=== PATIENT | female | born 1960 | race Caucasian/White ===

== ENCOUNTER 2017-12-08 19:25 | Inpatient (IN) | payer BC ==
[~2017-12-08] VITALS: Ht 162.6 cm; Wt 78.0 kg
[2017-12-08] MEDS: ALBUTEROL SULF 0.083% NEB SOLN 3 ML NEB NEB SCH (00:15)
[2017-12-08] MEDS: IPRATROPIUM BROMIDE 0.02% 2.5 ML NEB NEB SCH (00:15)
[2017-12-08] MEDS ORDERED: ONDANSETRON HCL INJ 2 MG/ML VIAL IV STA (19:43)
[2017-12-08] MEDS ORDERED: PANTOPRAZOLE 40 MG 10ML VIAL IV STA (19:43)
[2017-12-08] MEDS ORDERED: ALBUTEROL SULF 0.083% NEB SOLN 3 ML NEB NEB STA ×2 (19:43→21:08)
[2017-12-08] MEDS ORDERED: SODIUM CHLORIDE 0.9% 1000ML 1,000 ML IV STA (19:43)
[2017-12-08] MEDS ORDERED: MORPHINE SULFATE 2 MG/ML SYR IV STA (19:43)
[2017-12-08] MEDS ORDERED: IPRATROPIUM BROMIDE 0.02% 2.5 ML NEB NEB ONE (19:45)
[2017-12-08] MEDS ORDERED: LEVOTHYROXINE50 MCG PO (20:01)
[2017-12-08] MEDS ORDERED: LOSARTAN POTASS25 MG PO (20:01)
[2017-12-08] MEDS ORDERED: CARVEDILOL12.5 MG PO (20:01)
[2017-12-08] MEDS ORDERED: VSL#3 CAPSULE1 EACH PO (20:01)
[2017-12-08] MEDS ORDERED: MIRTAZAPINE15 MG PO (20:01)
[2017-12-08] MEDS ORDERED: VITAMIN D31000 UNI1 PO (20:01)
[2017-12-08] MEDS ORDERED: CLONAZEPAM0.5 MG PO (20:01)
[2017-12-08] MEDS ORDERED: FOLIC ACID1 MG PO (20:01)
[2017-12-08] MEDS ORDERED: FOLIC ACID-VIT1 EAC1 (20:01)
[2017-12-08] MEDS ORDERED: SENNOSIDES8.6 MG PO (20:01)
[2017-12-08] MEDS ORDERED: MIRALAX17 GM PO (20:01)
[2017-12-08] MEDS ORDERED: PRAVASTATIN SOD40 MG PO (20:01)
[2017-12-08] MEDS ORDERED: LACTULOSE PO (20:01)
[2017-12-08] MEDS ORDERED: OMEPRAZOLE40 MG PO (20:01)
[2017-12-08 20:07] LABS: BASOPHILS % 0.2 % (0.0-1.0); EOSINOPHILS # (AUTO) 0.1 (0.0-0.4); EOSINOPHILS % 0.4 % (0.0-6.0); HEMATOCRIT 45.2 % (34.2-44.1); HEMOGLOBIN 14.9 g/dL (12.0-16.0); LYMPHOCYTES # (AUTO) 2.7 (1.0-3.2); LYMPHOCYTES % 22.4 % (18.0-39.1); MEAN CORPUSCULAR HEMOGLOBIN 29.9 pg (28-32); MEAN CORPUSCULAR VOLUME 90.8 fL (81-99); MONOCYTES # (AUTO) 1.1 (0.2-0.8); NEUTROPHILS # (AUTO) 8.2 (2.1-6.9); NEUTROPHILS % 67.6 % (38.7-80.0); PLATELET COUNT 315 x10e3/uL (140-360); RED BLOOD COUNT 4.98 x10e6/uL (3.6-5.1)
[2017-12-08 20:15] LABS: INR 1.77; PROTHROMBIN TIME 19.4 seconds (11.9-14.5)
[2017-12-08 20:16] LABS: PARTIAL THROMBOPLASTIN TIME 36.1 seconds (23.8-35.5)
[2017-12-08 20:25] LABS: ALANINE AMINOTRANSFERASE 14 IU/L (0-55); ALBUMIN/GLOBULIN RATIO 1.1 (0.8-2.0); ALKALINE PHOSPHATASE 61 IU/L (40-150); ANION GAP 16.8 mmol/L (8-16); BLOOD UREA NITROGEN 17 mg/dL (7-26); BUN/CREATININE RATIO 25 (6-25); CALCIUM 9.9 mg/dL (8.4-10.2); CARBON DIOXIDE 24 mmol/L (22-29); CHLORIDE 101 mmol/L (98-107); CREATINE KINASE 74 IU/L (29-168); CREATININE, SERUM 0.69 mg/dL (0.57-1.11); EST GLOMERULAR FILTRATION RATE > 60 ML/MIN (60-); GLUCOSE 99 mg/dL (74-118); MAGNESIUM 1.7 MG/DL (1.3-2.1); POTASSIUM 3.8 mmol/L (3.5-5.1); SODIUM 138 mmol/L (136-145)
[2017-12-08] MEDS ORDERED: PREDNISONE20 MG PO (20:46)
[2017-12-08] MEDS ORDERED: ALBUTEROL2.5 MG/3 M NEB (20:46)
[2017-12-08] MEDS ORDERED: PROAIR HFA INH8.5 GM INH (20:46)
[2017-12-08] MEDS ORDERED: JANTOVEN10 MG PO (20:46)
[2017-12-08] MEDS ORDERED: NAPROXEN500 MG PO (20:46)
[2017-12-08] MEDS ORDERED: ULTRAM 50MG50 MG PO (20:46)
[2017-12-08] MEDS ORDERED: MONTELUKAST SOD10 MG PO (20:46)
[2017-12-08] MEDS ORDERED: METHYLPREDNISOLONE SOD SUCC 125 MG/2ML VIAL IV STA (21:08)
[2017-12-08] MEDS ORDERED: LEVOFLOXACIN 500MG/D5W 100ML 100 ML IV SCH (21:15)
--- NOTE | 2017-12-08 21:17 | Diagnostic Imaging Report ---
EXAMINATION: CHEST SINGLE (PORTABLE) INDICATION: Chest pain, cough, shortness of breath COMPARISON: 01/14/2012 FINDINGS: TUBES and LINES: None. LUNGS: Lungs are well inflated. There are bibasilar atelectasis. Confluent left lower lobe opacity compatible with pneumonia. PLEURA: Trace of left pleural effusion HEART AND MEDIASTINUM: The cardiomediastinal silhouette is unremarkable. BONES AND SOFT TISSUES: No acute osseous lesion. Soft tissues are unremarkable. UPPER ABDOMEN: No free air under the diaphragm. IMPRESSION: Left lower lobe pneumonia with trace of pleural effusion is present Signed by: Dr. Augie Bird M.D. on 12/08/2017 9:14 PM
[2017-12-08 21:27] LABS: BILIRUBIN,URINE 1+ (NEGATIVE); COLOR,URINE YELLOW (YELLOW); KETONES,URINE 2+ (NEGATIVE); LEUKOCYTE ESTERASE ,URINE NEGATIVE (NEGATIVE); NITRITE,URINE NEGATIVE (NEGATIVE); PROTEIN,URINE DIPSTICK TRACE (NEGATIVE); URINE UROBILINOGEN 0.2 mg/dL (0.2 - 1)
[2017-12-08] MEDS ORDERED: ASPIRIN 81 MG CHEW TAB PO ONE (21:30)
[2017-12-08 21:33] LABS: BACTERIA,URINE RARE /HPF; CLARITY,URINE HAZY (CLEAR); EPITHELIAL CELLS,URINE MODERATE /LPF; RBC,URINE 0-5 /HPF (0-5); WBC,URINE (MAN) 0-5 /HPF (0-5)
[2017-12-08] MEDS ORDERED: ALBUTEROL SULF 0.083% NEB SOLN 3 ML NEB ONE (21:46)
[2017-12-08] MEDS ORDERED: FAMOTIDINE 20 MG/2 ML VIAL IV SCH (22:15)
[2017-12-08] MEDS: AZITHROMYCIN 500MG/NS 250 ML 250 ML IV SCH (22:16)
[2017-12-08] MEDS: CEFTRIAXONE SOD 1 GM VIAL IV SCH (22:16)
[2017-12-08] MEDS: MORPHINE SULFATE 2 MG/ML SYR IV PRN (23:46)
[2017-12-09] VITALS (55 sets, daily range): BP systolic 76–172; BP diastolic 54–110
[2017-12-09] MEDS ORDERED: WARFARIN SOD 5 MG TAB PO ONE (01:15)
[2017-12-09] MEDS ORDERED: CYCLOBENZAPRINE10 MG PO (01:58)
[2017-12-09] MEDS ORDERED: MONTELUKAST SOD10 MG PO (01:58)
[2017-12-09] MEDS ORDERED: FLUOXETINE HCL20 MG PO (01:58)
[2017-12-09] MEDS ORDERED: ULTRAM50 MG PO (01:58)
[2017-12-09] MEDS ORDERED: TRELEGY INH (02:19)
[2017-12-09] MEDS: ALBUTEROL SULF 0.083% NEB SOLN 3 ML NEB NEB SCH ×6 (03:10→22:30)
[2017-12-09] MEDS: IPRATROPIUM BROMIDE 0.02% 2.5 ML NEB NEB SCH ×6 (03:10→22:30)
[2017-12-09 03:51] LABS: BASOPHILS % 0.1 % (0.0-1.0); HEMATOCRIT 41.3 % (34.2-44.1); HEMOGLOBIN 13.4 g/dL (12.0-16.0); LYMPHOCYTES # (AUTO) 0.4 (1.0-3.2); LYMPHOCYTES % 4.2 % (18.0-39.1); MEAN CORPUSCULAR HEMOGLOBIN 29.7 pg (28-32); MEAN CORPUSCULAR HGB CONC 32.4 g/dL (31-35); MEAN CORPUSCULAR VOLUME 91.6 fL (81-99); MONOCYTES # (AUTO) 0.1 (0.2-0.8); NEUTROPHILS # (AUTO) 7.8 (2.1-6.9); NEUTROPHILS % 94.5 % (38.7-80.0); RED BLOOD COUNT 4.51 x10e6/uL (3.6-5.1); RED CELL DISTRIBUTION WIDTH 15.2 % (11.7-14.4)
[2017-12-09 03:52] LABS: PLATELET COUNT 219 x10e3/uL (140-360)
[2017-12-09 04:00] LABS: ALANINE AMINOTRANSFERASE 15 IU/L (0-55); ALBUMIN 3.6 g/dL (3.5-5.0); ALBUMIN/GLOBULIN RATIO 1.1 (0.8-2.0); ALKALINE PHOSPHATASE 56 IU/L (40-150); ANION GAP 16.2 mmol/L (8-16); BLOOD UREA NITROGEN 16 mg/dL (7-26); BUN/CREATININE RATIO 25 (6-25); CALCIUM 9.3 mg/dL (8.4-10.2); CARBON DIOXIDE 24 mmol/L (22-29); CHLORIDE 103 mmol/L (98-107); CHOL/HDL RATIO 3.1 (3.0-3.6); CHOLESTEROL 227 MD/DL (0-199); CREATININE, SERUM 0.63 mg/dL (0.57-1.11); EST GLOMERULAR FILTRATION RATE > 60 ML/MIN (60-); GLUCOSE 132 mg/dL (74-118); HDL CHOLESTEROL 74 MG/DL (40-60); LDL CHOLESTEROL 129 MG/DL (60-130); POTASSIUM 4.2 mmol/L (3.5-5.1); SODIUM 139 mmol/L (136-145); TRIGLYCERIDES 122 MG/DL (0-149)
[2017-12-09 04:28] LABS: CREATINE KINASE MB 2.2 ng/mL (0-5.0)
[2017-12-09] MEDS: MORPHINE SULFATE 2 MG/ML SYR IV PRN (05:52)
[2017-12-09] MEDS: METHYLPREDNISOLONE SOD SUCC 125 MG/2ML VIAL IV SCH ×3 (05:52→22:00)
[2017-12-09] MEDS: ONDANSETRON HCL INJ 2 MG/ML VIAL IV PRN (05:52)
[2017-12-09] MEDS: CEFTRIAXONE SOD 1 GM VIAL IV SCH ×2 (08:29→21:30)
[2017-12-09] MEDS: AZITHROMYCIN 500MG/NS 250 ML 250 ML IV SCH (08:29)
[2017-12-09] MEDS ORDERED: FAMOTIDINE 20 MG/2 ML VIAL IV SCH (09:00)
[2017-12-09] MEDS ORDERED: TRAMADOL HCL 50 MG TAB PO PRN (09:15)
[2017-12-09] MEDS ORDERED: CLONAZEPAM 0.5 MG TAB PO PRN (09:15)
[2017-12-09] MEDS ORDERED: MORPHINE SULFATE INJ 4 MG/ML INJ IV PRN (09:45)
[2017-12-09 12:10] LABS: CREATINE KINASE MB 3.1 ng/mL (0-5.0)
[2017-12-09 12:25] LABS: ABG HCO3 34 mmol/L (23-28); ABG PCO2 67 mmHg (41-51); ABG PH 7.31 (7.31-7.41); ABG PO2 97 mmHg (80-105)
[2017-12-09] MEDS: NICOTINE 14 MG/EA PATCH TOP SCH (12:31)
--- NOTE | 2017-12-09 12:49 | Consultation ---
DATE OF CONSULTATION: December 14, 2017 PULMONARY CONSULTATION A patient of Dr. Bruner, Dr. Mukherjee, Dr. Da Silva. 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 No history of fever or chills. Uses home oxygen p.r.n. Able to work. History of mold allergies. In addition to oxygen her home medications have included ___Trelegy, Coumadin. ___Her medications have included albuterol, Coreg, clonazepam, Flexeril, Pepcid, Prozac, Protonix, MiraLAX, Pravachol, tramadol, warfarin. She is an anxious white female who is using some accessory muscles. Her family history is positive for hypertension, liver disease. Smokes half a pack a day, smoked as many as 2 packs a day. 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 PHYSICAL EXAMINATION GENERAL: This is a well-developed white female, anxious, using accessory muscles. VITAL SIGNS: Temperature 97.3, pulse 102, respiration 20, blood pressure 140/80. HEAD: Normocephalic, atraumatic. EYES: Extraocular movements intact. LUNGS: Wheezing all lung li. HEART: Regular rhythm. ABDOMEN: Nontender. EXTREMITIES: Nonedematous. Plan is to adjust medications, possible BiPAP if she does not soon improve, corticosteroids. Consider more selective beta agonist such as Lopressor. Thank you for this kind referral. SANTI MONSALVE MD Job#: [id number] EV cc:MD HARPER RODRIGUEZ MD JOSEPH G. VALDEZ, MD
[2017-12-09] MEDS: CYCLOBENZAPRINE HCL 10 MG TAB PO SCH ×2 (13:45→22:00)
[2017-12-09] MEDS: POLYETHYLENE GLYCOL 3350 17 GM PACK PO SCH ×3 (14:55→21:00)
[2017-12-09] MEDS: PROPOFOL IV EMULSION 10MG/ML 100 ML IV SCH ×2 (15:45→22:00)
--- NOTE | 2017-12-09 15:56 | Diagnostic Imaging Report ---
Examination: Single AP view of the chest. COMPARISON: 12/08/2017 INDICATION: Post intubation DISCUSSION: Lines/tubes: Endotracheal tube approximately 3.5 cm from the bill. Lungs: The lungs are well inflated and clear. No pneumonia or pulmonary edema. Pleura: No pleural effusion or pneumothorax. Heart and mediastinum: The heart and the mediastinum are unremarkable. Bones and soft tissues: No acute bony abnormalities. IMPRESSION: Intubation with endotracheal tube in satisfactory position. Signed by: Dr. Jayden Riojas M.D. on 12/09/2017 3:52 PM
[2017-12-09] MEDS ORDERED: SUCCINYLCHOLINE 200 MG/10 ML SYR IV ONE (16:03)
[2017-12-09] MEDS ORDERED: ETOMIDATE 40 MG/ 20ML VIAL IV ONE (16:04)
[2017-12-09] MEDS: FENTANYL CITRATE INJ 2,000 MCG in SODIUM CHLORIDE 0.9% 250ML 210 ML IV SCH (16:30)
[2017-12-09] MEDS: PANTOPRAZOLE SOD 40 MG TABEC PO SCH (16:31)
[2017-12-09] MEDS: BIF CMB1 PO SCH (16:31)
[2017-12-09] MEDS: S THERMOPHL PO SCH (16:31)
[2017-12-09] MEDS: LACT CMB2 PO SCH (16:31)
[2017-12-09] MEDS: LOSARTAN POTASSIUM 25 MG TAB PO SCH (16:31)
[2017-12-09] MEDS: CARVEDILOL 12.5 MG TAB PO SCH (16:31)
[2017-12-09 17:00] LABS: ABG PH 7.26 (7.31-7.41)
[2017-12-09] MEDS ORDERED: S THERMOPHL PO SCH (17:00)
[2017-12-09] MEDS ORDERED: BIF CMB1 PO SCH (17:00)
[2017-12-09] MEDS ORDERED: LACT CMB2 PO SCH (17:00)
[2017-12-09 17:01] LABS: ABG PCO2 75 mmHg (41-51)
[2017-12-09 17:02] LABS: ABG HCO3 33 mmol/L (23-28); ABG PO2 118 mmHg (80-105)
--- NOTE | 2017-12-09 18:03 | History and Physical ---
HISTORY OF PRESENT ILLNESS: A 57-year-old female with past medical history positive for COPD came here with difficulty breathing. She was found to have COPD exacerbation, later on progressed to respiratory failure, had to be intubated due to the respiratory acidosis. Patient is sedated right now on ventilator machine. REVIEW OF SYSTEMS: Of course the patient is intubated, cannot give me any information. PAST MEDICAL HISTORY: Mainly positive for COPD. SOCIAL HISTORY: She has apparently history of smoking. No drinking. ALLERGIES: SHE IS ALLERGIC TO LEVAQUIN, PROMETHAZINE. PHYSICAL EXAMINATION: VITAL SIGNS: Blood pressure 137/83, temperature 97.0, heart rate 111 per minute, respiratory rate 23 per minute. Oxygen saturation 93%. HEART: Shows regular rhythm. Normal S1 and S2 sounds. LUNGS: Show decreased breath sounds bilaterally. ABDOMEN: Soft. EXTREMITIES: Show no evidence of cyanosis, edema or trauma. On the blood work we have a BMP: Sodium 139, potassium 4.2, chloride 103, CO2 24, BUN 16, creatinine 0.63, glucose 132. On the CBC: White blood count 8.29, hemoglobin 13.4, hematocrit 41.3, platelet count 210,000. PT 19.4, INR 1.77, PTT 36.1. AST 14, ALT 15, total bilirubin 0.6, alkaline phosphatase of 56. Chest x-ray showed evidence of COPD but no evidence of any except for minimal left lower lobe infiltrate. FINAL IMPRESSION: 1. Acute respiratory failure secondary to chronic obstructive pulmonary disease exacerbation. 2. Chronic obstructive pulmonary disease exacerbation. 3. Left lower lobe pneumonia. PLAN OF TREATMENT: Continue ventilator support. Continue sedation. Continue albuterol and Atrovent q.4. h. Continue Zithromax 500 mg IV daily. Solu-Medrol 60 mg IV q.8 h. Fluoxetine 20 mg daily. Losartan 50 mg twice a day. Continue propofol sedation. Coreg 25 mg twice a day because of the history of hypertension. Continue Remeron 15 mg at bedtime. Protonix 40 mg twice a day. NicoDerm patch 40 mg daily. Ceftriaxone 1 gram IV twice a day. Clonazepam 0.5 mg daily. Multivitamin tablet daily. Singulair 10 mg daily. Tramadol 50 mg q.8. h. as needed. Morphine 2 mg IV q.3 h. as needed. Zofran 4 mg IV q.4 h. as needed. Flexeril 10 mg q.4 h. as needed. Levothyroxine 50 mcg daily for a diagnosis of hypothyroidism. Pravastatin 40 mg daily for the diagnosis of hypercholesterolemia. Lactulose 6.7 gram daily as needed. I discussed the case with the family members at the bedside. Medication has been reviewed. Dr. Bruner has been consulted from the pulmonary/critical care point of view. We are going to continue to monitor her condition, wean her off the ventilator as tolerated. Time spent 55 minutes. Job#: [id number] EV
--- NOTE | 2017-12-09 19:28 | Diagnostic Imaging Report ---
EXAM: Abdomen 1 View INDICATION: \S\OGT placement verification \[id number] \S\[id number] COMPARISON: None IMPRESSION: Dedicated x-ray to confirm OG-tube placement. Orogastric tube is visualized with tip overlying distal gastric body. Signed by: Dr. Michael Ceja MD on 12/09/2017 7:24 PM
[2017-12-09] MEDS: FOLIC ACID 1 MG TAB PO SCH (21:00)
[2017-12-09] MEDS ORDERED: FOLIC ACID 1 MG TAB PO SCH (21:00)
[2017-12-09] MEDS: MIRTAZAPINE 15 MG TAB PO SCH (21:00)
[2017-12-09] MEDS ORDERED: NON-FORMULARY MEDICATION (Pravastatin Sodium 40 MG) PO SCH (21:00)
[2017-12-09] MEDS ORDERED: PRAVASTATIN 20 MG TAB PO SCH (21:00)
[2017-12-09] MEDS ORDERED: DEXTROSE 5%/0.9% SOD CHL 1,000 ML IV ONE (21:50)
[2017-12-09] MEDS: DEXTROSE 5%/0.9% SOD CHL 1,000 ML IV SCH (22:00)
[2017-12-09] MEDS ORDERED: SODIUM CHLORIDE 0.9% 500ML 500 ML ONE (22:29)
[2017-12-09 23:38] LABS: ABG HCO3 33 mmol/L (23-28); ABG PCO2 50 mmHg (41-51); ABG PH 7.42 (7.31-7.41); ABG PO2 213 mmHg (80-105)
[2017-12-10] VITALS (86 sets, daily range): BP systolic 91–159; BP diastolic 58–92
[2017-12-10] MEDS: IPRATROPIUM BROMIDE 0.02% 2.5 ML NEB NEB SCH ×6 (03:02→22:50)
[2017-12-10] MEDS: ALBUTEROL SULF 0.083% NEB SOLN 3 ML NEB NEB SCH ×7 (03:02→22:50)
[2017-12-10] MEDS: FENTANYL CITRATE INJ 2,000 MCG in SODIUM CHLORIDE 0.9% 250ML 210 ML IV SCH (03:19)
[2017-12-10 04:44] LABS: HEMATOCRIT 35.6 % (34.2-44.1); HEMOGLOBIN 11.6 g/dL (12.0-16.0); LYMPHOCYTES # (AUTO) 0.9 (1.0-3.2); LYMPHOCYTES % 11.9 % (18.0-39.1); MEAN CORPUSCULAR HEMOGLOBIN 29.6 pg (28-32); MEAN CORPUSCULAR HGB CONC 32.6 g/dL (31-35); MEAN CORPUSCULAR VOLUME 90.8 fL (81-99); MONOCYTES # (AUTO) 0.4 (0.2-0.8); MONOCYTES % 4.9 % (4.4-11.3); NEUTROPHILS # (AUTO) 6.2 (2.1-6.9); NEUTROPHILS % 82.8 % (38.7-80.0); PLATELET COUNT 230 x10e3/uL (140-360); RED BLOOD COUNT 3.92 x10e6/uL (3.6-5.1); RED CELL DISTRIBUTION WIDTH 14.8 % (11.7-14.4)
[2017-12-10 04:56] LABS: INR 2.71
[2017-12-10 05:03] LABS: ANION GAP 12.8 mmol/L (8-16); BLOOD UREA NITROGEN 26 mg/dL (7-26); BUN/CREATININE RATIO 34 (6-25); CALCIUM 8.6 mg/dL (8.4-10.2); CARBON DIOXIDE 24 mmol/L (22-29); CHLORIDE 108 mmol/L (98-107); CREATININE, SERUM 0.76 mg/dL (0.57-1.11); EST GLOMERULAR FILTRATION RATE > 60 ML/MIN (60-); GLUCOSE 368 mg/dL (74-118); POTASSIUM 3.8 mmol/L (3.5-5.1); SODIUM 141 mmol/L (136-145)
[2017-12-10] MEDS: DEXTROSE 5%/0.9% SOD CHL 1,000 ML IV SCH ×3 (05:18→22:36)
[2017-12-10] MEDS: CYCLOBENZAPRINE HCL 10 MG TAB PO SCH ×3 (05:19→22:00)
[2017-12-10] MEDS: LEVOTHYROXINE SODIUM 50 MCG TAB PO SCH (06:07)
--- NOTE | 2017-12-10 07:26 | Diagnostic Imaging Report ---
Examination: Single AP view of the chest. COMPARISON: 12/09/2017 INDICATION: Intubation DISCUSSION: See impression IMPRESSION: Interval placement of an enteric tube, with the tip projecting off the current radiograph, inferior to the left hemidiaphragm. Endotracheal tube is stable in position. Lungs remain well-inflated and without focal consolidation, pleural effusion, or pneumothorax. Stable cardiomediastinal contour. Signed by: Dr. Shai Doss M.D. on 12/10/2017 7:22 AM
[2017-12-10] MEDS: METHYLPREDNISOLONE SOD SUCC 125 MG/2ML VIAL IV SCH ×2 (09:00→21:00)
[2017-12-10] MEDS ORDERED: NON-FORMULARY MEDICATION ([Trelegy] 1 INH) INH SCH (09:00)
[2017-12-10] MEDS: PANTOPRAZOLE SOD 40 MG TABEC PO SCH ×2 (09:00→17:00)
[2017-12-10] MEDS: LOSARTAN POTASSIUM 25 MG TAB PO SCH ×2 (09:00→17:00)
[2017-12-10] MEDS: MONTELUKAST SODIUM 10 MG TAB PO SCH (09:00)
[2017-12-10] MEDS: S THERMOPHL PO SCH ×2 (09:00→17:00)
[2017-12-10] MEDS: NON-FORMULARY MEDICATION ([Trelegy] 1 INH) INH SCH (09:00)
[2017-12-10] MEDS: AZITHROMYCIN 500MG/NS 250 ML 250 ML IV SCH (09:00)
[2017-12-10] MEDS: NICOTINE 14 MG/EA PATCH TOP SCH (09:00)
[2017-12-10] MEDS: BIF CMB1 PO SCH ×2 (09:00→17:00)
[2017-12-10] MEDS: POLYETHYLENE GLYCOL 3350 17 GM PACK PO SCH ×3 (09:00→21:00)
[2017-12-10] MEDS: CARVEDILOL 12.5 MG TAB PO SCH ×2 (09:00→17:00)
[2017-12-10] MEDS ORDERED: LACTULOSE PO SCH (09:00)
[2017-12-10] MEDS: LACT CMB2 PO SCH ×2 (09:00→17:00)
[2017-12-10] MEDS: LACTULOSE SYRUP 20 GM/30 ML UDC PO SCH (09:00)
[2017-12-10] MEDS ORDERED: LEVOTHYROXINE SODIUM 50 MCG TAB PO SCH (09:00)
[2017-12-10] MEDS: FLUOXETINE HCL 20 MG CAP PO SCH (09:00)
[2017-12-10] MEDS: CEFTRIAXONE SOD 1 GM VIAL IV SCH ×2 (09:30→22:35)
[2017-12-10] MEDS: FOLIC ACID/CYANOCOB/PYRIDOXINE TAB PO SCH (09:42)
[2017-12-10 14:23] LABS: ABG HCO3 30 mmol/L (23-28); ABG PCO2 60 mmHg (41-51); ABG PH 7.31 (7.31-7.41); ABG PO2 148 mmHg (80-105)
[2017-12-10] MEDS: WARFARIN SOD 5 MG TAB PO SCH (17:00)
--- NOTE | 2017-12-10 17:13 | Progress Note ---
DATE: December 10, 2017 INTERNAL MEDICINE PROGRESS NOTE SUBJECTIVE: Patient is still intubated. Patient failed the weaning trial today. PHYSICAL EXAM: VITAL SIGNS: Blood pressure 112/67. Temperature 97.8. Heart rate 67 per minute. Respiratory rate 16 per minute. Oxygen saturation 100%. HEART: Shows regular rhythm. Normal S1 and S2 sounds. LUNGS: Are clear bilaterally. ABDOMEN: Soft. EXTREMITIES: Show no evidence of cyanosis, edema or trauma. Chest x-ray showed NG tube in place, endotracheal tube above the bill. No evidence of any infiltrate right now. On the BMP: Sodium 141, potassium 3.8, chloride 108, CO2 24, BUN 26, creatinine 0.76, glucose 368. On the CBC: White blood count 7.49, hemoglobin 11.6, hematocrit 35.6, platelet count 230,000. PT 27.0, INR 2.01, PTT 36.1. AST 14, ALT 15, total bilirubin 0.6, alkaline phosphatase 56. FINAL IMPRESSION: 1. Acute respiratory failure secondary to chronic obstructive pulmonary disease exacerbation. 2. Chronic obstructive pulmonary disease exacerbation. 3. Pneumonia. 4. Hypertension. 5. Hypothyroidism. 6. Hypercholesterolemia. PLAN OF TREATMENT: Continue ventilator support, wean as tolerated. Continue albuterol and Atrovent q.4. h. Continue with D5 normal saline at 80 mL an hour. Clonazepam 0.5 mg daily. Multivitamin 1 tablet daily. Singulair 10 mg daily. Tramadol 50 mg q.8. h. as needed. Solu-Medrol 40 mg IV twice a day. Zithromax 500 mg IV piggyback daily. Ceftriaxone 1 gram IV piggyback twice a day. Flexeril 10 mg q.8. h. as needed. Levothyroxine 50 mcg daily. Pravastatin 40 mg daily. Lactulose 6.7 grams daily. Warfarin 10 mg daily. Propofol for sedation, to titrate for sedation. Zofran 4 mg IV q.4. h. as needed. Prozac 20 mg daily. Losartan 50 mg twice a day. Clonazepam 0.5 mg at bedtime. Continue with NG tube feedings. Continue with carvedilol 25 mg twice a day. Folic acid 1 mg daily. Remeron 15 mg at bedtime. Protonix 40 mg twice a day. NicoDerm patch 40 mg daily. Morphine 2 mg IV q. 3. h. as needed. Medications have been reviewed. Notes from the consultants have been reviewed. reviewed. Time spent 55 minutes. Job#: [id number] EV
[2017-12-10 20:06] LABS: ANION GAP 15.4 mmol/L (8-16); BLOOD UREA NITROGEN 32 mg/dL (7-26); BUN/CREATININE RATIO 48 (6-25); CALCIUM 9.1 mg/dL (8.4-10.2); CARBON DIOXIDE 23 mmol/L (22-29); CHLORIDE 108 mmol/L (98-107); CREATININE, SERUM 0.66 mg/dL (0.57-1.11); EST GLOMERULAR FILTRATION RATE > 60 ML/MIN (60-); GLUCOSE 169 mg/dL (74-118); POTASSIUM 4.4 mmol/L (3.5-5.1); SODIUM 142 mmol/L (136-145)
[2017-12-10] MEDS: FOLIC ACID 1 MG TAB PO SCH (21:00)
[2017-12-10] MEDS: MIRTAZAPINE 15 MG TAB PO SCH (21:00)
[2017-12-10] MEDS: SIMVASTATIN 20 MG TAB PO SCH (22:30)
[2017-12-10] MEDS: CLONAZEPAM 0.5 MG TAB PO SCH (22:30)
[2017-12-11] VITALS (87 sets, daily range): BP systolic 65–152; BP diastolic 42–101
[2017-12-11] MEDS: ALBUTEROL SULF 0.083% NEB SOLN 3 ML NEB NEB SCH ×6 (02:05→22:51)
[2017-12-11] MEDS: IPRATROPIUM BROMIDE 0.02% 2.5 ML NEB NEB SCH ×6 (02:05→22:51)
[2017-12-11 04:47] LABS: BASOPHILS % 0.1 % (0.0-1.0); HEMATOCRIT 38.1 % (34.2-44.1); HEMOGLOBIN 12.2 g/dL (12.0-16.0); LYMPHOCYTES # (AUTO) 0.7 (1.0-3.2); LYMPHOCYTES % 5.9 % (18.0-39.1); MEAN CORPUSCULAR HEMOGLOBIN 29.4 pg (28-32); MEAN CORPUSCULAR VOLUME 91.8 fL (81-99); MONOCYTES # (AUTO) 0.4 (0.2-0.8); MONOCYTES % 3.7 % (4.4-11.3); NEUTROPHILS # (AUTO) 10.7 (2.1-6.9); NEUTROPHILS % 89.8 % (38.7-80.0); PLATELET COUNT 222 x10e3/uL (140-360); RED BLOOD COUNT 4.15 x10e6/uL (3.6-5.1); RED CELL DISTRIBUTION WIDTH 15.1 % (11.7-14.4)
[2017-12-11 05:00] LABS: INR 2.85; PROTHROMBIN TIME 28.1 seconds (11.9-14.5)
[2017-12-11 05:07] LABS: ANION GAP 14.2 mmol/L (8-16); BLOOD UREA NITROGEN 30 mg/dL (7-26); BUN/CREATININE RATIO 44 (6-25); CALCIUM 8.7 mg/dL (8.4-10.2); CARBON DIOXIDE 23 mmol/L (22-29); CHLORIDE 109 mmol/L (98-107); CREATININE, SERUM 0.68 mg/dL (0.57-1.11); EST GLOMERULAR FILTRATION RATE > 60 ML/MIN (60-); GLUCOSE 191 mg/dL (74-118); POTASSIUM 4.2 mmol/L (3.5-5.1); SODIUM 142 mmol/L (136-145)
[2017-12-11] MEDS: CYCLOBENZAPRINE HCL 10 MG TAB PO SCH ×3 (06:00→20:50)
[2017-12-11] MEDS: LEVOTHYROXINE SODIUM 50 MCG TAB PO SCH (06:38)
--- NOTE | 2017-12-11 07:28 | Diagnostic Imaging Report ---
EXAM: CHEST SINGLE (PORTABLE) 12/11/2017 at 5:30 AM INDICATION: Shortness of breath COMPARISON: 12/09/2017 FINDINGS: Single portable AP view of the chest. Visualized bones, soft tissues and cardiomediastinal silhouette appear unchanged. IMPRESSION: 1. Lines/tubes: Endotracheal tube in appropriate position. There is a nasogastric tube but the tip cannot be localized. 2. Left basilar opacity likely secondary to scarring or atelectasis. 3. No acute cardiopulmonary abnormality is identified. Signed by: Dr. Allen Bacon DO on 12/11/2017 7:24 AM
[2017-12-11] MEDS: CLONAZEPAM 0.5 MG TAB PO SCH ×4 (07:30→20:49)
[2017-12-11] MEDS: ALBUTEROL/IPRATROPIUM 3 ML NEB NEB PRN (07:55)
[2017-12-11] MEDS: S THERMOPHL PO SCH ×2 (09:00→17:00)
[2017-12-11] MEDS: LACT CMB2 PO SCH ×2 (09:00→17:00)
[2017-12-11] MEDS: NON-FORMULARY MEDICATION ([Trelegy] 1 INH) INH SCH (09:00)
[2017-12-11] MEDS: POLYETHYLENE GLYCOL 3350 17 GM PACK PO SCH ×3 (09:00→20:49)
[2017-12-11] MEDS: LACTULOSE SYRUP 20 GM/30 ML UDC PO SCH (09:00)
[2017-12-11] MEDS: BIF CMB1 PO SCH ×2 (09:00→17:00)
[2017-12-11 09:35] LABS: ABG HCO3 30 mmol/L (23-28); ABG PCO2 60 mmHg (41-51); ABG PO2 115 mmHg (80-105)
[2017-12-11] MEDS: CEFTRIAXONE SOD 1 GM VIAL IV SCH ×2 (11:00→20:49)
[2017-12-11] MEDS: MONTELUKAST SODIUM 10 MG TAB PO SCH (11:00)
[2017-12-11] MEDS: AZITHROMYCIN 500MG/NS 250 ML 250 ML IV SCH (11:00)
[2017-12-11] MEDS: FOLIC ACID/CYANOCOB/PYRIDOXINE TAB PO SCH (11:00)
[2017-12-11] MEDS: CARVEDILOL 12.5 MG TAB PO SCH (11:00)
[2017-12-11] MEDS: LOSARTAN POTASSIUM 25 MG TAB PO SCH (11:00)
[2017-12-11] MEDS: METHYLPREDNISOLONE SOD SUCC 125 MG/2ML VIAL IV SCH ×2 (11:00→20:49)
[2017-12-11] MEDS: PANTOPRAZOLE SOD 40 MG TABEC PO SCH ×2 (11:00→17:30)
[2017-12-11] MEDS: FLUOXETINE HCL 20 MG CAP PO SCH (11:00)
[2017-12-11] MEDS: NICOTINE 14 MG/EA PATCH TOP SCH (11:00)
[2017-12-11] MEDS: PROPOFOL IV EMULSION 10MG/ML 100 ML IV SCH (15:30)
[2017-12-11] MEDS: FENTANYL CITRATE INJ 2,000 MCG in SODIUM CHLORIDE 0.9% 250ML 210 ML IV SCH (16:15)
[2017-12-11] MEDS ORDERED: FUROSEMIDE INJ 10 MG/ML 2 ML VIAL IV NR (17:00)
--- NOTE | 2017-12-11 17:15 | Progress Note ---
DATE: December 11, 2017 INTERNAL MEDICINE PROGRESS NOTE SUBJECTIVE: She is still on the ventilator, unable to be weaned yet. Complaining of shortness of breath. OBJECTIVE VITAL SIGNS: Blood pressure 151/83, temperature 98.6, heart rate 99 per minute. Respiratory rate is 20 per minute. Oxygen saturation 100%. HEART: Regular rhythm. Normal S1 and S2 sounds. LUNGS: Bilateral wheezing. ABDOMEN: Not distended. EXTREMITIES: No evidence of cyanosis, edema or trauma. BLOOD WORK: We have a BMP with a sodium 142, potassium 4.2, chloride 109, CO2 23. BUN 30, creatinine 0.68. Glucose 181. CBC: White blood count 11.9, hemoglobin 12.2, hematocrit 38.1, platelet count 222,000. PT 28.1, INR 2.85, PTT 36.1. AST 14, ALT 15, total bilirubin 0.6, alkaline phosphatase 56. FINAL IMPRESSION 1. Acute respiratory failure secondary to chronic obstructive pulmonary disease exacerbation. 2. Chronic obstructive pulmonary disease exacerbation. 3. Acute renal insufficiency. 4. Atrial fibrillation. 5. Episode of hypotension today. 6. Anxiety. 7. Gastroesophageal reflux disease. 8. Left lower lobe pneumonia. 9. Hypothyroidism. 10. Hypercholesterolemia. PLAN OF TREATMENT 1. We are going to start normal saline at 80 mL an hour because of episode of hypotension. We are going to hold carvedilol and losartan in the meantime. 2. Continue albuterol and Atrovent q.4 h. as needed for shortness of breath. 3. Continue levothyroxine 50 mcg daily. 4. Clonazepam 0.5 mg at bedtime. 5. Zithromax 500 mg IV daily. 6. Ceftriaxone 1 gram IV twice a day. 7. Paxil 20 mg daily. 8. Protonix 40 mg twice a day. 9. NicoDerm patch 40 mg daily. 10. Simvastatin 20 mg daily. 11. Folic acid 1 mg daily. 12. Remeron 50 mg at bedtime. 13. Tramadol 50 mg q.8 h. 14. Solu-Medrol 40 mg IV twice a day. 15. Morphine sulfate 2 mg IV q.3 h. 16. Continue with multivitamin tablet daily. 17. Singular 10 mg daily. 18. Coumadin 10 mg daily. 19. The patient still remains in the ICU, unable to extubated yet. Job#: [id number] MH
[2017-12-11] MEDS: SODIUM CHLORIDE 0.9% 1000ML 1,000 ML IV SCH (17:26)
[2017-12-11] MEDS: WARFARIN SOD 5 MG TAB PO SCH (17:30)
[2017-12-11] MEDS: SIMVASTATIN 20 MG TAB PO SCH (20:49)
[2017-12-11] MEDS: MIRTAZAPINE 15 MG TAB PO SCH (20:49)
[2017-12-11] MEDS: FOLIC ACID 1 MG TAB PO SCH (20:49)
[2017-12-12] VITALS (47 sets, daily range): BP systolic 89–162; BP diastolic 59–106
[2017-12-12] MEDS: IPRATROPIUM BROMIDE 0.02% 2.5 ML NEB NEB SCH ×6 (02:05→22:50)
[2017-12-12] MEDS: ALBUTEROL SULF 0.083% NEB SOLN 3 ML NEB NEB SCH ×6 (02:05→22:50)
[2017-12-12 04:39] LABS: BASOPHILS % 0.2 % (0.0-1.0); HEMATOCRIT 39.7 % (34.2-44.1); HEMOGLOBIN 12.7 g/dL (12.0-16.0); LYMPHOCYTES # (AUTO) 1.3 (1.0-3.2); LYMPHOCYTES % 10.5 % (18.0-39.1); MEAN CORPUSCULAR HEMOGLOBIN 29.7 pg (28-32); MONOCYTES # (AUTO) 0.5 (0.2-0.8); MONOCYTES % 3.8 % (4.4-11.3); NEUTROPHILS # (AUTO) 10.9 (2.1-6.9); NEUTROPHILS % 84.9 % (38.7-80.0); PLATELET COUNT 215 x10e3/uL (140-360); RED BLOOD COUNT 4.27 x10e6/uL (3.6-5.1); RED CELL DISTRIBUTION WIDTH 15.3 % (11.7-14.4)
[2017-12-12 04:49] LABS: INR 4.29; PROTHROMBIN TIME 38.7 seconds (11.9-14.5)
[2017-12-12 04:58] LABS: BLOOD UREA NITROGEN 30 mg/dL (7-26); BUN/CREATININE RATIO 46 (6-25); CALCIUM 9.1 mg/dL (8.4-10.2); CARBON DIOXIDE 26 mmol/L (22-29); CHLORIDE 106 mmol/L (98-107); CREATININE, SERUM 0.65 mg/dL (0.57-1.11); EST GLOMERULAR FILTRATION RATE > 60 ML/MIN (60-); GLUCOSE 130 mg/dL (74-118); SODIUM 144 mmol/L (136-145)
[2017-12-12] MEDS: LEVOTHYROXINE SODIUM 50 MCG TAB PO SCH (06:39)
[2017-12-12] MEDS: CYCLOBENZAPRINE HCL 10 MG TAB PO SCH ×3 (06:40→21:34)
[2017-12-12] MEDS: CLONAZEPAM 0.5 MG TAB PO SCH ×2 (07:30→12:10)
[2017-12-12] MEDS: ALBUTEROL/IPRATROPIUM 3 ML NEB NEB PRN ×2 (07:40→11:20)
[2017-12-12] MEDS: BIF CMB1 PO SCH ×2 (09:00→16:28)
[2017-12-12] MEDS ORDERED: TRIAMCINOLONE ACET 0.1% CREAM 15 GM TUBE TOP SCH (09:00)
[2017-12-12] MEDS: LACTULOSE SYRUP 20 GM/30 ML UDC PO SCH (09:00)
[2017-12-12] MEDS: LACT CMB2 PO SCH ×2 (09:00→16:28)
[2017-12-12] MEDS: S THERMOPHL PO SCH ×2 (09:00→16:28)
[2017-12-12] MEDS: POLYETHYLENE GLYCOL 3350 17 GM PACK PO SCH ×3 (09:00→21:34)
[2017-12-12] MEDS: NON-FORMULARY MEDICATION ([Trelegy] 1 INH) INH SCH (09:00)
[2017-12-12] MEDS: AZITHROMYCIN 500MG/NS 250 ML 250 ML IV SCH (09:50)
[2017-12-12] MEDS: NICOTINE 14 MG/EA PATCH TOP SCH (09:50)
[2017-12-12] MEDS: MONTELUKAST SODIUM 10 MG TAB PO SCH (09:50)
[2017-12-12] MEDS: METHYLPREDNISOLONE SOD SUCC 125 MG/2ML VIAL IV SCH ×2 (09:50→21:34)
[2017-12-12] MEDS: FLUOXETINE HCL 20 MG CAP PO SCH (09:50)
[2017-12-12] MEDS: FOLIC ACID/CYANOCOB/PYRIDOXINE TAB PO SCH (09:50)
[2017-12-12] MEDS: CEFTRIAXONE SOD 1 GM VIAL IV SCH ×2 (09:50→21:34)
[2017-12-12] MEDS: PANTOPRAZOLE SOD 40 MG TABEC PO SCH ×2 (09:50→17:00)
[2017-12-12 11:27] LABS: ABG PH 7.27 (7.31-7.41)
[2017-12-12 11:28] LABS: ABG HCO3 33 mmol/L (23-28); ABG PCO2 71 mmHg (41-51); ABG PO2 201 mmHg (80-105)
[2017-12-12] MEDS ORDERED: CLONAZEPAM 0.5 MG TAB PO PRN (13:45)
[2017-12-12] MEDS: FENTANYL CITRATE INJ 2,000 MCG in SODIUM CHLORIDE 0.9% 250ML 210 ML IV SCH (16:15)
[2017-12-12] MEDS: METOPROLOL TARTRATE 25 MG TAB PO SCH (17:00)
--- NOTE | 2017-12-12 17:02 | Progress Note ---
DATE: December 12, 2017 INTERNAL MEDICINE PROGRESS NOTE SUBJECTIVE: She is still on the ventilator, unable to wean today. Tomorrow will be another trial to wean her off the ventilator machine. PHYSICAL EXAM: VITAL SIGNS: Blood pressure is 151/83. Temperature 98.6. Heart rate 99 per minute. Respiratory rate is 20 per minute. Oxygen saturation 100%. HEART: Shows regular rhythm. Normal S1 and S2 sounds. LUNGS: Show decreased breath sounds bilaterally. ABDOMEN: Soft. EXTREMITIES: Show no evidence of cyanosis, edema or trauma. BLOOD WORK: We have BMP: Sodium 142, potassium 4.2, chloride 109, CO2 23, BUN 30, creatinine 0.68, glucose 191. CBC showed white blood count 11.9, hemoglobin 12.2, hematocrit 38.1, platelet count is 232,000. PT 28.1, PTT 36.1, INR has been elevated. AST 14, ALT 15, total bilirubin 0.6, alkaline phosphatase 56. FINAL IMPRESSION: 1. Acute respiratory failure secondary to chronic obstructive pulmonary disease exacerbation. 2. Chronic obstructive pulmonary disease exacerbation. 3. Acute renal insufficiency. 4. Atrial fibrillation with normal ventricular response. 5. Anxiety. 6. Gastroesophageal reflux disease. 7. Left lower lobe pneumonia. 8. Hypothyroidism. 9. Hypercholesterolemia. PLAN OF TREATMENT: We are going to hold the Coumadin because the INR is elevated. Continue ventilator support. Try to wean her off the ventilator tomorrow another time. Continue albuterol and Atrovent q.4 h. as needed. Continue levothyroxine. Continue clonazepam only as needed. Continue Zithromax 500 mg IV daily. Ceftriaxone 1 gram IV twice a day. Paxil 20 mg daily. Protonix 40 mg twice a day for gastritis prophylaxis. NicoDerm patch 40 mg daily. Simvastatin 20 mg daily. Folic acid 1 mg daily. Remeron 15 mg at bedtime. Tramadol 50 mg q.8 h. Solu-Medrol 40 mg IV twice a day. Morphine 2 mg IV q.3 h. as needed. Continue multivitamin. Singular 10 mg daily. Coumadin is going to be placed on hold because of the high INR. As I said, we are going to try to wean her off the ventilator tomorrow. Patient was unable to be off the ventilator today. Labs have been reviewed. Vital signs have been reviewed. Time spent 55. Job#: [id number] EV
[2017-12-12] MEDS: PROPOFOL IV EMULSION 10MG/ML 100 ML IV SCH ×3 (19:15→23:39)
[2017-12-12] MEDS: SODIUM CHLORIDE 0.9% 1000ML 1,000 ML IV SCH (19:15)
[2017-12-12] MEDS: MIRTAZAPINE 15 MG TAB PO SCH (21:35)
[2017-12-12] MEDS: FOLIC ACID 1 MG TAB PO SCH (21:35)
[2017-12-12] MEDS: SIMVASTATIN 20 MG TAB PO SCH (21:35)
[2017-12-12] MEDS: ONDANSETRON HCL INJ 2 MG/ML VIAL IV PRN (23:43)
[2017-12-13] VITALS (56 sets, daily range): BP systolic 91–183; BP diastolic 58–111
[2017-12-13] MEDS: ALBUTEROL SULF 0.083% NEB SOLN 3 ML NEB NEB SCH ×6 (02:45→23:00)
[2017-12-13] MEDS: IPRATROPIUM BROMIDE 0.02% 2.5 ML NEB NEB SCH ×6 (02:45→22:25)
[2017-12-13] MEDS: ONDANSETRON HCL INJ 2 MG/ML VIAL IV PRN ×2 (04:41→21:39)
[2017-12-13 04:46] LABS: BASOPHILS % 0.1 % (0.0-1.0); HEMATOCRIT 40.9 % (34.2-44.1); HEMOGLOBIN 13.1 g/dL (12.0-16.0); LYMPHOCYTES # (AUTO) 1.2 (1.0-3.2); MEAN CORPUSCULAR HEMOGLOBIN 29.4 pg (28-32); MEAN CORPUSCULAR VOLUME 91.9 fL (81-99); MONOCYTES # (AUTO) 0.6 (0.2-0.8); MONOCYTES % 5.2 % (4.4-11.3); NEUTROPHILS # (AUTO) 9.8 (2.1-6.9); NEUTROPHILS % 83.8 % (38.7-80.0); PLATELET COUNT 203 x10e3/uL (140-360); RED BLOOD COUNT 4.45 x10e6/uL (3.6-5.1); RED CELL DISTRIBUTION WIDTH 14.9 % (11.7-14.4)
[2017-12-13 04:57] LABS: INR 3.27; PROTHROMBIN TIME 35.6 seconds (11.9-14.5)
[2017-12-13 05:05] LABS: ANION GAP 14.3 mmol/L (8-16); BLOOD UREA NITROGEN 35 mg/dL (7-26); BUN/CREATININE RATIO 56 (6-25); CARBON DIOXIDE 28 mmol/L (22-29); CHLORIDE 106 mmol/L (98-107); CREATININE, SERUM 0.62 mg/dL (0.57-1.11); EST GLOMERULAR FILTRATION RATE > 60 ML/MIN (60-); GLUCOSE 128 mg/dL (74-118); MAGNESIUM 2.1 MG/DL (1.3-2.1); PHOSPHORUS 2.9 MG/DL (2.3-4.7); POTASSIUM 4.3 mmol/L (3.5-5.1); SODIUM 144 mmol/L (136-145)
[2017-12-13] MEDS: CYCLOBENZAPRINE HCL 10 MG TAB PO SCH (05:27)
[2017-12-13] MEDS: LEVOTHYROXINE SODIUM 50 MCG TAB PO SCH (05:27)
[2017-12-13] MEDS: SODIUM CHLORIDE 0.9% 1000ML 1,000 ML IV SCH ×2 (05:27→18:45)
--- NOTE | 2017-12-13 06:59 | Diagnostic Imaging Report ---
CHEST SINGLE (PORTABLE), 12/13/2017 5:00 AM Technique: CHEST SINGLE (PORTABLE) Comparison: Previous day Clinical history: Intubated Findings: Stable visualized cardiomediastinal silhouette, lungs, pleural spaces, and bones. Impression: 1. Lines/Tubes: Stable ET tube approximately 4 cm above the bill. Subdiaphragmatic NG tube. 2. Stable chest without acute abnormality. Signed by: Dr Katharine Boucher MD on 12/13/2017 6:55 AM
[2017-12-13] MEDS: FOLIC ACID/CYANOCOB/PYRIDOXINE TAB PO SCH (07:47)
[2017-12-13] MEDS ORDERED: CHLORASEPTIC SPRAY 177 ML BTL MM PRN (08:30)
[2017-12-13] MEDS: METOPROLOL TARTRATE 25 MG TAB PO SCH ×2 (09:00→17:00)
[2017-12-13] MEDS: NON-FORMULARY MEDICATION ([Trelegy] 1 INH) INH SCH (09:00)
[2017-12-13] MEDS: LACTULOSE SYRUP 20 GM/30 ML UDC PO SCH (09:00)
[2017-12-13] MEDS: POLYETHYLENE GLYCOL 3350 17 GM PACK PO SCH ×3 (09:00→21:39)
[2017-12-13] MEDS: PANTOPRAZOLE SOD 40 MG TABEC PO SCH ×2 (09:00→17:00)
[2017-12-13] MEDS: FLUOXETINE HCL 20 MG CAP PO SCH (09:00)
[2017-12-13] MEDS: S THERMOPHL PO SCH ×2 (09:00→17:00)
[2017-12-13] MEDS: LACT CMB2 PO SCH ×2 (09:00→17:00)
[2017-12-13] MEDS: MONTELUKAST SODIUM 10 MG TAB PO SCH (09:00)
[2017-12-13] MEDS: BIF CMB1 PO SCH ×2 (09:00→17:00)
[2017-12-13] MEDS: METHYLPREDNISOLONE SOD SUCC 125 MG/2ML VIAL IV SCH (09:57)
[2017-12-13] MEDS: NICOTINE 14 MG/EA PATCH TOP SCH (09:57)
[2017-12-13] MEDS: CEFTRIAXONE SOD 1 GM VIAL IV SCH ×2 (09:57→21:39)
[2017-12-13 10:12] LABS: ABG HCO3 34 mmol/L (23-28); ABG PCO2 58 mmHg (41-51); ABG PH 7.38 (7.31-7.41); ABG PO2 167 mmHg (80-105)
[2017-12-13 10:47] LABS: ABG HCO3 36 mmol/L (23-28); ABG PCO2 68 mmHg (41-51); ABG PH 7.33 (7.31-7.41); ABG PO2 90 mmHg (80-105)
[2017-12-13] MEDS ORDERED: CYCLOBENZAPRINE HCL 10 MG TAB PO SCH (12:00)
[2017-12-13] MEDS ORDERED: EPINEPHRINE 2.25% INH NEBU SOL 0.5 ML VIAL INH STA ×2 (12:10→12:56)
[2017-12-13] MEDS ORDERED: EPINEPHRINE 2.25% INH NEBU SOL 0.5 ML VIAL ONE (12:18)
[2017-12-13] MEDS ORDERED: DEXAMETHASONE SOD PHOS 10 MG/1 ML VIAL IV ONE ×4 (13:00→15:00)
[2017-12-13] MEDS ORDERED: EPINEPHRINE 2.25% INH NEBU SOL 0.5 ML VIAL INH ONE (13:00)
[2017-12-13] MEDS ORDERED: DEXAMETHASONE SOD PHOS 10 MG/1 ML VIAL ONE (13:00)
[2017-12-13] MEDS ORDERED: ALBUTEROL/IPRATROPIUM 3 ML NEB NEB ONE (14:00)
[2017-12-13] MEDS ORDERED: MAGNESIUM SULF 1GRAM/DEXTROSE 0 ML IV ONE (14:01)
[2017-12-13] MEDS ORDERED: ALBUTEROL/IPRATROPIUM 3 ML NEB ONE (14:01)
[2017-12-13] MEDS ORDERED: MAGNESIUM SULFATE 2GM/50ML 50 ML IV ONE ×2 (14:12→15:00)
[2017-12-13] MEDS ORDERED: MIDAZOLAM HCL 25 MG in SODIUM CHLORIDE 0.9% 50ML 45 ML IV PRN (14:45)
[2017-12-13] MEDS ORDERED: MIDAZOLAM HCL 25 MG in SODIUM CHLORIDE 0.9% 45 ML IV PRN (14:45)
[2017-12-13] MEDS: FENTANYL CITRATE INJ 2,000 MCG in SODIUM CHLORIDE 0.9% 250ML 210 ML IV PRN (14:45)
--- NOTE | 2017-12-13 15:08 | Diagnostic Imaging Report ---
EXAMINATION: CHEST SINGLE (PORTABLE) INDICATION: Extubation. COMPARISON: 12/13/2017 at 0626 hours FINDINGS: TUBES and LINES: The endotracheal tube has been retracted and now the distal tip is located 4.8 cm proximal to the bill LUNGS: Lungs are well inflated. Likely minimal scarring/atelectasis at the left lung base. There is no evidence of pneumonia or pulmonary edema. PLEURA: No pleural effusion or pneumothorax. HEART AND MEDIASTINUM: The cardiomediastinal silhouette is unremarkable. BONES AND SOFT TISSUES: No acute osseous lesion. Soft tissues are unremarkable. UPPER ABDOMEN: No free air under the diaphragm. IMPRESSION: The endotracheal tube has been retracted and now the distal tip is located 4.8 cm proximal to the bill Signed by: Dr. Prabhu Navarrete M.D. on 12/13/2017 3:03 PM
[2017-12-13] MEDS ORDERED: MIDAZOLAM HCL 2 MG/2 ML VIAL ONE (15:18)
[2017-12-13] MEDS ORDERED: ETOMIDATE 40 MG/ 20ML VIAL IV ONE (15:18)
[2017-12-13 16:47] LABS: ABG PCO2 93 mmHg (41-51); ABG PO2 97 mmHg (80-105)
[2017-12-13 16:48] LABS: ABG HCO3 36 mmol/L (23-28)
[2017-12-13 16:49] LABS: ABG HCO3 34 mmol/L (23-28); ABG PCO2 42 mmHg (41-51); ABG PH 7.51 (7.31-7.41); ABG PO2 110 mmHg (80-105)
[2017-12-13] MEDS ORDERED: WARFARIN SOD 5 MG TAB PO SCH (17:00)
[2017-12-13 17:46] LABS: THYROID STIMULATING HORMONE 0.301 uIU/mL (0.350-4.940)
--- NOTE | 2017-12-13 18:44 | Progress Note ---
DATE: December 13, 2017 INTERNAL MEDICINE PROGRESS NOTE SUBJECTIVE: Patient had to be reintubated after being extubated because of significant respiratory distress, stridor. I talked with Dr. Sanchez, pulmonology, on the case, who recommended tracheostomy. We are going to consult Dr. Sam for tracheostomy placement and Dr. Reynaldo Pizarro for PEG tube placement. She probably needs to [id number] for continuing the weaning off the ventilator. PHYSICAL EXAM HEART: Showed regular rhythm. Normal S1, S2 sounds. LUNGS: Clear bilaterally but significantly decreased. ABDOMEN: Soft, nontender, nondistended. EXTREMITIES: Show no evidence of cyanosis, edema, or trauma. VITAL SIGNS: Blood pressure 124/104, temperature 97.2, heart rate 109 per minute, respiratory rate 24 per minute, ox saturation 96%. LABS: On the blood gas done today pH 7.512, pCO2 42, pO2 110, sodium bicarb 33.7, oxygen saturation 99%. On the BMP, sodium 144, potassium 4.3, chloride 106, CO2 28, BUN 35, creatinine 0.62, and glucose 128. CBC showed white blood count 11,600, hemoglobin 13.1, hematocrit 40.9, platelet count 203,000, PT 35.6, INR 3.27, PTT 36.1, AST 14, ALT 15, total bilirubin 0.6, alkaline phosphatase 56. FINAL IMPRESSION 1. Acute respiratory failure secondary to chronic obstructive pulmonary disease exacerbation with several failures on the weaning process. 2. History of deep venous thrombosis. 1. Hypertension. 2. Chronic obstructive pulmonary disease exacerbation. 3. Acute renal failure. 4. Chronic atrial fibrillation. 5. Anxiety. 6. Gastroesophageal reflux disease. 7. Lower lobe pneumonia. 8. Hypothyroidism. 9. Hypercholesterolemia. PLAN OF TREATMENT: We are going to continue current ventilator support. We are going to consult ears, nose, and throat specialist, Dr. Sam, for replacement of tracheostomy tube and Dr. Reynaldo Pizarro for PEG tube placement. Continue albuterol q. 4 hours and Atrovent q. 4 hours. Continue Zofran 4 mg IV q. 4 hours as needed for nausea and vomiting, levothyroxine 50 mcg daily. Continue the NG tube feeding. Continue hydralazine 10 mg IV q. 4 hours as needed for hypertension, clonazepam 0.25 mg daily, fluoxetine 20 mg daily, losartan 50 mg twice a day, Protonix 40 mg twice a day. Coumadin has been placed on hold because of the coagulopathy and the INR being more than 3.0. Continue with folic acid 1 mg daily, Remeron 15 mg at night p.r.n. for sleep, tramadol 50 mg q. 8 hours as needed, Solu-Medrol 40 mg twice a day IV. Continue metoprolol 25 mg twice a day, morphine 2 mg IV q. 3 hours as needed, ceftriaxone 1 gram IV twice a day, multivitamin 1 tablet daily, Singulair 10 mg daily, lactulose daily, simvastatin 20 mg daily. Case has been discussed with the nurses and Dr. Sanchez about the care. Patient failed several attempts of weaning her off the ventilator. She is going to require tracheostomy. We are going to probe how to place her in a [id number] if insurance approves it. Time spent around 55 minutes. Job#: [id number] VIVI
[2017-12-13] MEDS: FOLIC ACID 1 MG TAB PO SCH (21:39)
[2017-12-13] MEDS: MIRTAZAPINE 15 MG TAB PO SCH (21:39)
[2017-12-13] MEDS: SIMVASTATIN 20 MG TAB PO SCH (21:39)
[2017-12-13] MEDS: CLONAZEPAM 0.5 MG TAB PO PRN (21:52)
[2017-12-14] VITALS (90 sets, daily range): BP systolic 81–191; BP diastolic 56–122
[2017-12-14] MEDS: FENTANYL CITRATE INJ 2,000 MCG in SODIUM CHLORIDE 0.9% 250ML 210 ML IV PRN ×3 (00:14→19:00)
[2017-12-14] MEDS: IPRATROPIUM BROMIDE 0.02% 2.5 ML NEB NEB SCH ×6 (01:55→22:30)
[2017-12-14] MEDS: ALBUTEROL SULF 0.083% NEB SOLN 3 ML NEB NEB SCH ×6 (01:55→23:00)
--- NOTE | 2017-12-14 04:12 | Diagnostic Imaging Report ---
EXAM: CT CHEST WO DATE: 12/14/2017 5:00 AM INDICATION: \S\sob check lung and upper airway \S\[id number] \S\[id number] COMPARISON: 2011 TECHNIQUE: Multidetector CT scanning of the chest was performed. Coronal and sagittal multiplanar reformations were obtained. CT low dose techniques were utilized, as applicable. IV Contrast: 0 ml Isovue 370/300 FINDINGS: ET tube terminates about 3 cm above the bill. NG tube terminates within the gastric body. LUNGS AND PLEURA: Central airways are patent with mild lingular bronchiolar mucous plugging. There is new focal right basilar bronchiolectasis leading to a consolidative opacity. Mild scattered lingular and bibasilar opacity likely reflect atelectasis/scarring. Underlying emphysema. HEART, MEDIASTINUM, VESSELS: Normal heart size with scattered coronary artery and aortic calcification.. No pericardial effusion. No adenopathy. UPPER ABDOMEN: Diffuse adrenal thickening which can be seen with hyperplasia. MUSCULOSKELETAL: No acute findings. Anasarca. IMPRESSION: Right basilar opacity may reflect pneumonia and/or sequelae of aspiration. Recommend 3 month follow-up to document resolution. Signed by: Dr Katharine Boucher MD on 12/14/2017 4:08 AM
[2017-12-14 04:46] LABS: BASOPHILS % 0.2 % (0.0-1.0); HEMATOCRIT 39.4 % (34.2-44.1); HEMOGLOBIN 12.7 g/dL (12.0-16.0); LYMPHOCYTES # (AUTO) 1.5 (1.0-3.2); MEAN CORPUSCULAR HEMOGLOBIN 29.6 pg (28-32); MEAN CORPUSCULAR HGB CONC 32.2 g/dL (31-35); MEAN CORPUSCULAR VOLUME 91.8 fL (81-99); MONOCYTES # (AUTO) 0.9 (0.2-0.8); MONOCYTES % 7.6 % (4.4-11.3); NEUTROPHILS # (AUTO) 8.7 (2.1-6.9); NEUTROPHILS % 78.4 % (38.7-80.0); PLATELET COUNT 178 x10e3/uL (140-360); RED BLOOD COUNT 4.29 x10e6/uL (3.6-5.1); RED CELL DISTRIBUTION WIDTH 14.9 % (11.7-14.4)
[2017-12-14 04:57] LABS: INR 1.92; PROTHROMBIN TIME 23.5 seconds (11.9-14.5)
[2017-12-14 05:05] LABS: ANION GAP 15.2 mmol/L (8-16); BLOOD UREA NITROGEN 35 mg/dL (7-26); BUN/CREATININE RATIO 58 (6-25); CALCIUM 8.9 mg/dL (8.4-10.2); CARBON DIOXIDE 27 mmol/L (22-29); CHLORIDE 105 mmol/L (98-107); EST GLOMERULAR FILTRATION RATE > 60 ML/MIN (60-); GLUCOSE 104 mg/dL (74-118); POTASSIUM 4.2 mmol/L (3.5-5.1); SODIUM 143 mmol/L (136-145)
[2017-12-14] MEDS: LEVOTHYROXINE SODIUM 50 MCG TAB PO SCH (05:11)
[2017-12-14] MEDS: SODIUM CHLORIDE 0.9% 1000ML 1,000 ML IV SCH ×2 (07:15→20:02)
[2017-12-14] MEDS: METHYLPREDNISOLONE SOD SUCC 125 MG/2ML VIAL IV SCH (07:30)
[2017-12-14] MEDS: FOLIC ACID/CYANOCOB/PYRIDOXINE TAB PO SCH (07:30)
[2017-12-14] MEDS: NON-FORMULARY MEDICATION ([Trelegy] 1 INH) INH SCH (08:51)
[2017-12-14] MEDS: S THERMOPHL PO SCH ×2 (08:51→17:00)
[2017-12-14] MEDS: BIF CMB1 PO SCH ×2 (08:51→17:00)
[2017-12-14] MEDS: LACT CMB2 PO SCH ×2 (08:51→17:00)
[2017-12-14] MEDS: METOPROLOL TARTRATE 25 MG TAB PO SCH ×2 (08:51→17:00)
[2017-12-14] MEDS: MONTELUKAST SODIUM 10 MG TAB PO SCH (09:00)
[2017-12-14] MEDS: POLYETHYLENE GLYCOL 3350 17 GM PACK PO SCH ×3 (09:00→21:22)
[2017-12-14] MEDS: FLUOXETINE HCL 20 MG CAP PO SCH (09:00)
[2017-12-14] MEDS: LACTULOSE SYRUP 20 GM/30 ML UDC PO SCH (09:00)
[2017-12-14] MEDS: NICOTINE 14 MG/EA PATCH TOP SCH (09:00)
[2017-12-14] MEDS: CEFTRIAXONE SOD 1 GM VIAL IV SCH ×2 (09:30→21:22)
[2017-12-14] MEDS: PANTOPRAZOLE 40 MG 10ML VIAL IV SCH ×2 (10:15→22:15)
[2017-12-14] MEDS: THEOPHYLLINE 300 MG TABSR PO SCH (10:31)
[2017-12-14] MEDS ORDERED: PROPOFOL IV EMULSION 10MG/ML 100 ML IV PRN (12:00)
--- NOTE | 2017-12-14 13:02 | Diagnostic Imaging Report ---
Examination: Single AP view of the chest. COMPARISON: None. INDICATION: Line placement DISCUSSION: Lines/tubes: Stable endotracheal tube. Enteric tube with distal tip not visualized. Right PICC line with tip overlying the mid SVC. Lungs: The lungs are well inflated and clear. No pneumonia or pulmonary edema. Pleura: No pleural effusion or pneumothorax. Heart and mediastinum: The heart and the mediastinum are unremarkable. Bones and soft tissues: No acute bony abnormalities. IMPRESSION: 1. Right PICC line with tip overlying the mid SVC Signed by: Dr. Jayden Riojas M.D. on 12/14/2017 1:00 PM
--- NOTE | 2017-12-14 13:40 | Consultation ---
DATE OF CONSULTATION: December 14, 2017 ADDENDUM TO PULMONARY CONSULTATION The patient's baseline pulmonary function 03/10: Forced vital capacity is 2.39 liters, 77% of predicted. FEV1 was 1.57 liters, 25% of predicted. FEV1:FVC ratio 24%. There was no significant improvement following inhalation of bronchodilators. Lung volumes were increased, 164% of predicted total lung capacity. Diffusion capacity reduced to 32% consistent with very severe obstructive pulmonary disease. Job#: [id number]
[2017-12-14] MEDS: CLINDAMYCIN PHOS 900MG/ 50ML 50 ML IV SCH ×2 (14:00→22:00)
[2017-12-14] MEDS: CLONAZEPAM 0.5 MG TAB PO PRN (14:29)
[2017-12-14] MEDS: HYDRALAZINE HCL 20 MG/ML VIAL IV PRN (14:32)
[2017-12-14] MEDS ORDERED: SODIUM CHLORIDE 0.9% 250ML 250 ML ONE (15:44)
[2017-12-14] MEDS ORDERED: CLONIDINE HCL 0.1 MG/24 HR 1 EA PATCH TOP SCH (19:30)
[2017-12-14 20:36] LABS: INR 1.32; PROTHROMBIN TIME 17.5 seconds (11.9-14.5)
[2017-12-14] MEDS: SIMVASTATIN 20 MG TAB PO SCH (21:22)
[2017-12-14] MEDS: MIRTAZAPINE 15 MG TAB PO SCH (21:22)
[2017-12-14] MEDS: FOLIC ACID 1 MG TAB PO SCH (21:22)
[2017-12-15] VITALS (96 sets, daily range): BP systolic 116–200; BP diastolic 69–120
[2017-12-15] MEDS: IPRATROPIUM BROMIDE 0.02% 2.5 ML NEB NEB SCH ×6 (02:25→22:45)
[2017-12-15] MEDS: ALBUTEROL SULF 0.083% NEB SOLN 3 ML NEB NEB SCH ×6 (02:25→22:45)
[2017-12-15] MEDS: FENTANYL CITRATE INJ 2,000 MCG in SODIUM CHLORIDE 0.9% 250ML 210 ML IV PRN (04:34)
[2017-12-15] MEDS: HYDRALAZINE HCL 20 MG/ML VIAL IV PRN (04:42)
[2017-12-15] MEDS: CLINDAMYCIN PHOS 900MG/ 50ML 50 ML IV SCH ×3 (05:21→22:39)
[2017-12-15 05:45] LABS: INR 1.06; PROTHROMBIN TIME 14.8 seconds (11.9-14.5)
[2017-12-15] MEDS: FOLIC ACID/CYANOCOB/PYRIDOXINE TAB PO SCH (07:32)
[2017-12-15] MEDS: METHYLPREDNISOLONE SOD SUCC 125 MG/2ML VIAL IV SCH (07:32)
[2017-12-15] MEDS: LACTULOSE SYRUP 20 GM/30 ML UDC PO SCH (09:00)
[2017-12-15] MEDS: NON-FORMULARY MEDICATION ([Trelegy] 1 INH) INH SCH (09:00)
[2017-12-15] MEDS: S THERMOPHL PO SCH ×2 (09:00→17:00)
[2017-12-15] MEDS: POLYETHYLENE GLYCOL 3350 17 GM PACK PO SCH ×3 (09:00→21:00)
[2017-12-15] MEDS: BIF CMB1 PO SCH ×2 (09:00→17:00)
[2017-12-15] MEDS: LACT CMB2 PO SCH ×2 (09:00→17:00)
[2017-12-15] MEDS: FLUOXETINE HCL 20 MG CAP PO SCH (09:19)
[2017-12-15] MEDS: NICOTINE 14 MG/EA PATCH TOP SCH (09:19)
[2017-12-15] MEDS: THEOPHYLLINE 300 MG TABSR PO SCH (09:19)
[2017-12-15] MEDS: METOPROLOL TARTRATE 25 MG TAB PO SCH ×2 (09:19→18:15)
[2017-12-15] MEDS: MONTELUKAST SODIUM 10 MG TAB PO SCH (09:19)
[2017-12-15] MEDS: CEFTRIAXONE SOD 1 GM VIAL IV SCH (09:20)
[2017-12-15] MEDS: SODIUM CHLORIDE 0.9% 1000ML 1,000 ML IV SCH (09:23)
[2017-12-15] MEDS: CLONAZEPAM 0.5 MG TAB PO PRN (09:51)
[2017-12-15] MEDS: PANTOPRAZOLE 40 MG 10ML VIAL IV SCH ×2 (10:15→21:25)
[2017-12-15] MEDS ORDERED: FUROSEMIDE INJ 10 MG/ML 2 ML VIAL IV NR (11:15)
[2017-12-15] MEDS: ENOXAPARIN INJ 80 MG/0.8 ML SYR SC SCH ×2 (13:31→21:25)
[2017-12-15 13:38] LABS: INR 1.06; PROTHROMBIN TIME 14.8 seconds (11.9-14.5)
[2017-12-15] MEDS: MIDAZOLAM HCL 2 MG/2 ML VIAL IV PRN ×2 (15:14→21:40)
[2017-12-15] MEDS ORDERED: ENOXAPARIN INJ 80 MG/0.8 ML SYR SC SCH (21:00)
[2017-12-15] MEDS: SIMVASTATIN 20 MG TAB PO SCH (21:25)
[2017-12-15] MEDS: MIRTAZAPINE 15 MG TAB PO SCH (21:25)
[2017-12-15] MEDS: FOLIC ACID 1 MG TAB PO SCH (21:25)
[2017-12-16] VITALS (91 sets, daily range): BP systolic 112–178; BP diastolic 59–101
[2017-12-16] MEDS: ALBUTEROL SULF 0.083% NEB SOLN 3 ML NEB NEB SCH ×6 (03:00→23:00)
[2017-12-16] MEDS: IPRATROPIUM BROMIDE 0.02% 2.5 ML NEB NEB SCH ×6 (03:00→23:00)
[2017-12-16 05:07] LABS: BASOPHILS % 0.1 % (0.0-1.0); EOSINOPHILS # (AUTO) 0.1 (0.0-0.4); EOSINOPHILS % 0.8 % (0.0-6.0); HEMATOCRIT 34.4 % (34.2-44.1); HEMOGLOBIN 11.4 g/dL (12.0-16.0); LYMPHOCYTES # (AUTO) 2.6 (1.0-3.2); MEAN CORPUSCULAR HGB CONC 33.1 g/dL (31-35); MEAN CORPUSCULAR VOLUME 90.5 fL (81-99); MONOCYTES % 8.8 % (4.4-11.3); NEUTROPHILS # (AUTO) 7.9 (2.1-6.9); NEUTROPHILS % 67.1 % (38.7-80.0); PLATELET COUNT 188 x10e3/uL (140-360); RED CELL DISTRIBUTION WIDTH 14.8 % (11.7-14.4)
[2017-12-16] MEDS: MIDAZOLAM HCL 2 MG/2 ML VIAL IV PRN (05:12)
[2017-12-16 05:28] LABS: INR 1.05; PROTHROMBIN TIME 14.7 seconds (11.9-14.5)
[2017-12-16] MEDS: CLINDAMYCIN PHOS 900MG/ 50ML 50 ML IV SCH ×2 (06:14→14:20)
[2017-12-16] MEDS: FOLIC ACID/CYANOCOB/PYRIDOXINE TAB PO SCH (07:30)
[2017-12-16] MEDS: METHYLPREDNISOLONE SOD SUCC 125 MG/2ML VIAL IV SCH (08:19)
[2017-12-16] MEDS: NICOTINE 14 MG/EA PATCH TOP SCH (08:20)
[2017-12-16 08:25] LABS: ANION GAP 14.7 mmol/L (8-16); BLOOD UREA NITROGEN 24 mg/dL (7-26); BUN/CREATININE RATIO 39 (6-25); CALCIUM 9.2 mg/dL (8.4-10.2); CARBON DIOXIDE 31 mmol/L (22-29); CHLORIDE 97 mmol/L (98-107); CREATININE, SERUM 0.62 mg/dL (0.57-1.11); EST GLOMERULAR FILTRATION RATE > 60 ML/MIN (60-); GLUCOSE 78 mg/dL (74-118); POTASSIUM 3.7 mmol/L (3.5-5.1); SODIUM 139 mmol/L (136-145)
[2017-12-16] MEDS: BIF CMB1 PO SCH ×2 (09:00→17:00)
[2017-12-16] MEDS: FLUOXETINE HCL 20 MG CAP PO SCH (09:00)
[2017-12-16] MEDS: METOPROLOL TARTRATE 25 MG TAB PO SCH ×2 (09:00→17:00)
[2017-12-16] MEDS: NON-FORMULARY MEDICATION ([Trelegy] 1 INH) INH SCH (09:00)
[2017-12-16] MEDS: LACT CMB2 PO SCH ×2 (09:00→17:00)
[2017-12-16] MEDS: S THERMOPHL PO SCH ×2 (09:00→17:00)
[2017-12-16] MEDS: LACTULOSE SYRUP 20 GM/30 ML UDC PO SCH (09:00)
[2017-12-16] MEDS: MONTELUKAST SODIUM 10 MG TAB PO SCH (09:00)
[2017-12-16] MEDS: ENOXAPARIN INJ 80 MG/0.8 ML SYR SC SCH (09:00)
[2017-12-16] MEDS: POLYETHYLENE GLYCOL 3350 17 GM PACK PO SCH ×3 (09:00→20:20)
[2017-12-16] MEDS: THEOPHYLLINE 300 MG TABSR PO SCH (09:00)
[2017-12-16] MEDS: PANTOPRAZOLE 40 MG 10ML VIAL IV SCH ×2 (11:48→22:21)
--- NOTE | 2017-12-16 17:43 | Progress Note ---
DATE: December 16, 2017 INTERNAL MEDICINE PROGRESS NOTE SUBJECTIVE: Patient is on the ventilator machine. Right now she is status post PEG tube placement by Dr. Reynaldo Pizarro. Tomorrow she is going to go for a tracheostomy. She has been unable to be weaned off the ventilator and after that, if we get the approval from the insurance company, patient can go to [facility]. PHYSICAL EXAM: VITAL SIGNS: Blood pressure 148/79. Temperature 98.5. Heart rate 81 per minute. Respiratory rate 16 per minute. Oxygen saturation 100%. HEART: Shows regular rhythm. Normal S1 and S2 sounds. LUNGS: Are clear bilaterally with some few wheezing. ABDOMEN: Soft. EXTREMITIES: Show no evidence of cyanosis, edema or trauma. On the BMP: Sodium 139, potassium 3.7, chloride 97, CO2 31, BUN 24, creatinine 0.62, glucose 78. On the CBC: White blood count 11,700, hemoglobin 11.4, hematocrit 34.4, platelet count 188,000. PT 14.7, PTT 36.1, INR 1.05. AST 14, ALT 15, total bilirubin 0.6, alkaline phosphatase 56. FINAL IMPRESSION: 1. Acute respiratory failure secondary to chronic obstructive pulmonary disease exacerbation. 2. Chronic obstructive pulmonary disease exacerbation. 3. History of deep vein thrombosis. 4. Acute renal failure. 5. Chronic atrial fibrillation. 6. Anxiety. 7. Gastroesophageal reflux disease. 1. Left lower lobe aspiration pneumonia. 2. Hypothyroidism. 3. Hypercholesterolemia. PLAN OF TREATMENT: Continue holding the Lovenox in order to have the tracheostomy tomorrow. Continue albuterol and Atrovent q.4 hours around the clock. Continue fentanyl patch, to titrate for sedation. Continue Prozac 20 mg daily. Remeron 15 mg at bedtime. Metoprolol 25 mg twice a day. Protonix 40 mg twice a day. Clindamycin q.8 hours. Folic acid 1 mg at bedtime. Singular 10 mg daily. NicoDerm patch 40 mg daily. Theophylline 300 mg daily. Simvastatin 20 mg at bedtime. Clonazepam 0.25 mg daily. Clonidine patch 0.1 mg once a week. Zofran 4 mg IV q.4 hours as needed for vomiting. Losartan 50 mg twice a day. Lactulose 6.7 g daily. Hydralazine 10 mg IV q.4 hours as needed for hypertension. Solu-Medrol 40 mg IV before breakfast. I discussed the case with the family at the bedside. I discussed the case with Dr. Bruner also. Labs have been reviewed. Medications have been reviewed. Patient is ready to go to the tracheostomy. Time spent 55 minutes. Job#: [id number] EV
--- NOTE | 2017-12-16 17:48 | Operative Report ---
DATE OF PROCEDURE: December 16, 2017 REFERRING PHYSICIAN: Dr. Harper Cid. PROCEDURE PERFORMED: Esophagogastroduodenoscopy with percutaneous endoscopic gastrotomy tube placement. INDICATIONS FOR PROCEDURE: Patient is on vent, nasogastric tube feeding dependent, for EGD and PEG tube placement. MEDICATION: Patient was done under general endotracheal anesthesia. Please see anesthesiologist's note. PROCEDURE: With the patient in the supine position, the flexible fiberoptic Olympus gastroscope was introduced into the esophagus under direct visualization without any difficulty. There was some patchy erythema noted in the distal esophagus. The scope was then advanced with ease into the stomach, and mucosa overlying the antrum and the body revealed some patchy erythema. The pylorus was intubated with ease, and the scope was advanced all the way to the 2nd portion of the duodenum. The scope was then withdrawn slowly. Mucosa overlying the proximal 2nd portion and duodenal bulb grossly appeared to be within normal limits. The scope was then withdrawn back into the stomach and retroflexed, and the mucosa overlying the fundus and the cardia appeared to be within normal limits. The scope was then straightened out and after delineation of a safe entry point per external digital palpation and transabdominal illumination, PEG tube placement was carried out in the usual fashion. The scope was subsequently withdrawn after documenting a good positioning of the intragastric bumper. Patient tolerated procedure well. IMPRESSION: 1. Distal esophagitis. 2. Gastritis. 3. Percutaneous endoscopic gastrotomy tube placement carried out in the usual fashion. PLAN: G-tube to drain to gravity in a Owens bag times 24 hours, then can use. Job#: [id number] EV cc:HARPER CID MD
[2017-12-16] MEDS ORDERED: MIDAZOLAM HCL 2 MG/2 ML VIAL ONE ×2 (18:39→18:43)
[2017-12-16] MEDS ORDERED: LIDOCAINE HCL 2% LOCAL INJ 5 ML SDV VIAL INJ ONE (18:51)
[2017-12-16] MEDS ORDERED: PROPOFOL IV EMULSION 10 MG/ML 20 ML VIAL ONE (18:51)
[2017-12-16] MEDS: SIMVASTATIN 20 MG TAB PO SCH (20:20)
[2017-12-16] MEDS: FOLIC ACID 1 MG TAB PO SCH (20:20)
[2017-12-16] MEDS: MIRTAZAPINE 15 MG TAB PO SCH (20:20)
[2017-12-16] MEDS: FENTANYL CITRATE INJ 2,000 MCG in SODIUM CHLORIDE 0.9% 250ML 210 ML IV PRN (21:32)
[2017-12-16] MEDS: PIPER-TAZ 3.375 GM 50 ML IV SCH (22:21)
[2017-12-17] VITALS (84 sets, daily range): BP systolic 97–161; BP diastolic 52–93
[2017-12-17] MEDS: ALBUTEROL SULF 0.083% NEB SOLN 3 ML NEB NEB SCH ×6 (03:00→22:05)
[2017-12-17] MEDS: IPRATROPIUM BROMIDE 0.02% 2.5 ML NEB NEB SCH ×6 (03:00→22:05)
[2017-12-17 05:25] LABS: INR 1.03; PROTHROMBIN TIME 14.4 seconds (11.9-14.5)
[2017-12-17] MEDS: PIPER-TAZ 3.375 GM 50 ML IV SCH ×3 (05:37→22:26)
[2017-12-17] MEDS: FENTANYL CITRATE INJ 2,000 MCG in SODIUM CHLORIDE 0.9% 250ML 210 ML IV PRN ×2 (06:16→15:01)
[2017-12-17] MEDS: FOLIC ACID/CYANOCOB/PYRIDOXINE TAB PO SCH (07:30)
[2017-12-17] MEDS: NICOTINE 14 MG/EA PATCH TOP SCH (07:57)
[2017-12-17] MEDS: METHYLPREDNISOLONE SOD SUCC 125 MG/2ML VIAL IV SCH (07:57)
[2017-12-17] MEDS: S THERMOPHL PO SCH ×2 (09:00→17:00)
[2017-12-17] MEDS: METOPROLOL TARTRATE 25 MG TAB PO SCH ×2 (09:00→16:40)
[2017-12-17] MEDS: LACT CMB2 PO SCH ×2 (09:00→17:00)
[2017-12-17] MEDS: LACTULOSE SYRUP 20 GM/30 ML UDC PO SCH (09:00)
[2017-12-17] MEDS: THEOPHYLLINE 300 MG TABSR PO SCH (09:00)
[2017-12-17] MEDS: POLYETHYLENE GLYCOL 3350 17 GM PACK PO SCH ×3 (09:00→22:26)
[2017-12-17] MEDS: FLUOXETINE HCL 20 MG CAP PO SCH (09:00)
[2017-12-17] MEDS: NON-FORMULARY MEDICATION ([Trelegy] 1 INH) INH SCH (09:00)
[2017-12-17] MEDS: BIF CMB1 PO SCH ×2 (09:00→17:00)
[2017-12-17] MEDS: MONTELUKAST SODIUM 10 MG TAB PO SCH (09:00)
[2017-12-17] MEDS ORDERED: LIDOCAINE 1% W/EPINEPHRINE 20 ML VIAL ONE (09:14)
[2017-12-17] MEDS: PANTOPRAZOLE 40 MG 10ML VIAL IV SCH ×2 (10:00→22:26)
--- NOTE | 2017-12-17 12:26 | Operative Report ---
DATE OF PROCEDURE: December 17, 2017 PREOPERATIVE DIAGNOSIS: Respiratory failure. POSTOPERATIVE DIAGNOSIS: Respiratory failure. OPERATION PERFORMED: Tracheostomy with #8 Shiley MANAGEMENT ENGINEER tracheostomy tube. OPERATIVE FINDINGS: Normal neck anatomy. OPERATIVE INDICATIONS: This 57-year-old woman with advanced COPD has failed attempts at extubation and now presents with respiratory failure necessitating tracheostomy tube placement. The risks, benefits and alternatives to surgical intervention were discussed in detail with the patient and her family, and they gave their informed consent to have this procedure performed. NARRATIVE REPORT: After 1st obtaining adequate general anesthesia through a previously placed endotracheal tube, the patient was prepped and draped in the usual fashion after first injecting the area of incision with 1% lidocaine with epinephrine 1:100,000. A 3-cm incision was then made 2 cm above the sternal notch with a #15 blade, then carried through the subcutaneous tissues with the Bovie applications chemist. The strap muscles were identified and divided in the midline and reflected laterally with a Gelpi retractor. The thyroid isthmus was transected with the Bovie applications chemist. A cricoid hook was then inserted. An incision was made between the 2nd and 3rd tracheal rings with a #15 blade. An inferiorly-based trapezoidal flap was then created using curved Sr scissors. The endotracheal tube was partially withdrawn. A #8 Shiley MANAGEMENT ENGINEER tracheostomy tube was easily inserted through the tracheostomy site. There was more bleeding than usual from the left side of the tracheostomy. This area was exposed, and hemostasis was obtained using the cautery. The tracheostomy tube was then sutured in place with 2-0 nylon. Trach ties were applied. The patient was in satisfactory condition at the termination of the procedure. Job#: [id number]
--- NOTE | 2017-12-17 12:39 | Consultation ---
DATE OF CONSULTATION: December 14, 2017 OTOLARYNGOLOGY CONSULTATION HISTORY OF PRESENT ILLNESS: I was kindly asked to see this 57-year-old woman with end-stage COPD and failed extubation for tracheostomy tube placement. Her history of present illness, past medical history and past surgical history were all reviewed in detail on the chart. PHYSICAL EXAMINATION: There was no abnormal neck anatomy noted. ASSESSMENT: Respiratory failure. PLAN: Tracheostomy. Job#: [id number] EV
[2017-12-17] MEDS ORDERED: HEPARIN SOD (PORCINE) 1000 UNIT/ML SDV IV ONE (15:00)
[2017-12-17] MEDS ORDERED: DIPHENHYDRAMINE HCL ELIX 12.5 MG/5 ML UDC NG PRN ×2 (17:45)
--- NOTE | 2017-12-17 18:17 | Progress Note ---
DATE: INTERNAL MEDICINE PROGRESS NOTE SUBJECTIVE: Patient is status post tracheostomy. Status post PEG tube placement. On a ventilator right now. PHYSICAL EXAM: VITAL SIGNS: Blood pressure 129/71. Temperature 98.9. Heart rate 89 per minute. Respiratory rate 16 per minute. Oxygen saturation 100%. HEART: Shows regular rhythm. Normal S1 and S2 sounds. LUNGS: Show decreased breath sounds bilaterally. ABDOMEN: Soft. He has got a PEG tube in place. LAB: On the BMP: Sodium 139, potassium 3.7, chloride 97, CO2 31, BUN 24, creatinine 0.62, glucose 78. On the CBC: White blood count 11,700, hemoglobin 11.4, hematocrit 34.4, platelet count 188,000. PT 14.4, PTT 36.1, INR 1.03. AST 14, ALT 15, total bilirubin 0.6, alkaline phosphatase 56. FINAL IMPRESSION: 1. Acute respiratory failure secondary to chronic obstructive pulmonary disease exacerbation and pneumonia, status post tracheostomy. 2. Chronic obstructive pulmonary disease exacerbation. 3. History of deep venous thrombosis. 4. Acute renal failure. 5. Chronic atrial fibrillation. 6. Anxiety disorder. 7. Gastroesophageal reflux disease. 8. Aspiration pneumonia. 9. Hypothyroidism. 10. Hypercholesterolemia. PLAN OF TREATMENT: Continue ventilator support. Continue albuterol and Atrovent q.4 hours. Continue fluoxetine 20 mg daily. Remeron 15 mg at bedtime. Metoprolol 25 mg twice a day. Protonix 40 mg twice a day. Folic acid 1 mg daily. Singulair 10 mg daily. NicoDerm patch 40 mg daily. Theophylline 300 mg daily. Zosyn 3.375 grams IV q.6 hours. Folic acid, cyanocobalamin, pyridoxine 1 tablet daily. Continue simvastatin 20 mg daily. Clonazepam 0.25 mg daily. Clonidine 0.1 mg once a week. Valsartan 50 mg twice a day. Lactulose 6.7 grams daily. Hydralazine 10 mg IV q.4 hours as needed. Solu-Medrol 40 mg IV with breakfast. Benadryl 25 mg q.6 hours as needed for anxiety. Case has been discussed with the patient and nurse at bedside. We are going to initiate a [facility] rehab referral because the patient probably is going to need to be in an LTAC for a long time for weaning purposes. Job#: [id number] EV
[2017-12-17] MEDS ORDERED: FENTANYL 25 MCG/HR PATCH TOP SCH (18:30)
[2017-12-17] MEDS ORDERED: FENTANYL CITRATE/PF 100MCG/2 ML INJ ONE (19:09)
[2017-12-17] MEDS ORDERED: MIDAZOLAM HCL 2 MG/2 ML VIAL ONE (19:09)
[2017-12-17] MEDS ORDERED: PROPOFOL IV EMULSION 10 MG/ML 20 ML VIAL ONE (19:28)
[2017-12-17] MEDS ORDERED: ROCURONIUM BROMIDE 10 MG/ML 5ML VIAL ONE (19:28)
[2017-12-17] MEDS ORDERED: SEVOFLURANE INHAL SOLN 250 ML PEN BTL ONE (19:28)
[2017-12-17] MEDS ORDERED: ONDANSETRON HCL INJ 2 MG/ML VIAL ONE (19:28)
[2017-12-17] MEDS: FOLIC ACID 1 MG TAB PO SCH (22:26)
[2017-12-17] MEDS: SIMVASTATIN 20 MG TAB PO SCH (22:26)
[2017-12-17] MEDS: MIRTAZAPINE 15 MG TAB PO SCH (22:26)
[2017-12-18] VITALS (82 sets, daily range): BP systolic 82–137; BP diastolic 46–92
[2017-12-18] MEDS: ALBUTEROL SULF 0.083% NEB SOLN 3 ML NEB NEB SCH ×5 (02:15→19:25)
[2017-12-18] MEDS: IPRATROPIUM BROMIDE 0.02% 2.5 ML NEB NEB SCH ×5 (02:15→19:20)
[2017-12-18] MEDS: FENTANYL CITRATE INJ 2,000 MCG in SODIUM CHLORIDE 0.9% 250ML 210 ML IV PRN (03:22)
[2017-12-18 05:15] LABS: INR 1.06; PROTHROMBIN TIME 14.8 seconds (11.9-14.5)
[2017-12-18] MEDS: PIPER-TAZ 3.375 GM 50 ML IV SCH ×2 (05:44→14:00)
[2017-12-18] MEDS: FLUOXETINE HCL 20 MG CAP PO SCH (09:00)
[2017-12-18] MEDS ORDERED: ENOXAPARIN INJ 80 MG/0.8 ML SYR SC SCH (09:00)
[2017-12-18] MEDS: NICOTINE 14 MG/EA PATCH TOP SCH (09:00)
[2017-12-18] MEDS: NON-FORMULARY MEDICATION ([Trelegy] 1 INH) INH SCH (09:00)
[2017-12-18] MEDS: LACTULOSE SYRUP 20 GM/30 ML UDC PO SCH (09:00)
[2017-12-18] MEDS: S THERMOPHL PO SCH ×2 (09:00→16:17)
[2017-12-18] MEDS: POLYETHYLENE GLYCOL 3350 17 GM PACK PO SCH ×2 (09:00→14:48)
[2017-12-18] MEDS: THEOPHYLLINE 300 MG TABSR PO SCH (09:00)
[2017-12-18] MEDS: LACT CMB2 PO SCH ×2 (09:00→16:17)
[2017-12-18] MEDS: MONTELUKAST SODIUM 10 MG TAB PO SCH (09:00)
[2017-12-18] MEDS: BIF CMB1 PO SCH ×2 (09:00→16:17)
[2017-12-18] MEDS: METOPROLOL TARTRATE 25 MG TAB PO SCH ×2 (09:30→17:30)
[2017-12-18] MEDS ORDERED: FUROSEMIDE INJ 10 MG/ML 2 ML VIAL IV NR (09:45)
[2017-12-18] MEDS: PANTOPRAZOLE 40 MG 10ML VIAL IV SCH (10:15)
[2017-12-18] MEDS: FOLIC ACID/CYANOCOB/PYRIDOXINE TAB PO SCH (10:42)
[2017-12-18] MEDS: CLONAZEPAM 0.5 MG TAB PO PRN (13:42)
[2017-12-18] MEDS ORDERED: SODIUM CHLORIDE 0.9% 250ML 250 ML ONE (15:22)
[2017-12-18] MEDS ORDERED: WARFARIN SOD 5 MG TAB PO SCH (17:00)
[2017-12-18] MEDS ORDERED: ACETAMINOPHEN 325 MG/10 ML UDC NG PRN (17:15)
--- NOTE | 2017-12-18 23:11 | Discharge Summary ---
HISTORY OF PRESENT ILLNESS: Patient is a 57-year-old female, who has past medical history positive for severe COPD. She has history of DVT, history of factor V Leiden deficiency, came because of shortness of breath. She was found to have respiratory failure intubated. Patient had tracheostomy and PEG tube placement. Also, she is going to be transferred to [facility]. She also was found to have pneumonia. PHYSICAL EXAM VITALS: Blood pressure 104/62, temperature to 99.8, heart rate 91 per minute, respiratory rate 12 per minute, oxygen saturation 93%. HEART: Shows regular rhythm. Normal S1, S2 sounds. LUNGS: Clear bilaterally. ABDOMEN: Soft. EXTREMITIES: Show no evidence of cyanosis or trauma. LABS: On the BMP, sodium 139, potassium 3.7, chloride 97, CO2 31, BUN 24, creatinine 0.62, glucose 78. CBC, white blood count 17,700, hemoglobin 9.4, hematocrit 34.4, platelet count 198,000. PT 14.8, PTT 36.1, INR 1.06. AST 14, ALT 15, total bilirubin 0.6, alkaline phosphatase 56. FINAL IMPRESSIONS 1. Acute respiratory failure secondary to chronic obstructive pulmonary disease exacerbation. 2. Lower lobe pneumonia. 3. Factor V deficiency. 4. History of deep venous thrombosis on the lower extremities. 5. History of hypercholesterolemia. PLAN OF TREATMENT 1. Going to continue albuterol/Atrovent q.4 h. 2. Continue trach collar as much as tolerated. 3. Folic acid 1 mg daily. 4. Singulair 10 mg daily. 5. Nicotine patch 40 mg daily. 6. Clonidine 0.1 mg patch once a week. 7. Fentanyl patch q.72 h. 8. Zosyn 3.375 g IV q.6 h. 9. Folic acid 1 tablet daily. 10. Simvastatin 20 mg daily. 11. Clonazepam 0.25 mg daily. 12. Continue Coumadin 5 mg daily. 13. Continue monitoring PT and INR for an INR between 2.0 to 3.0. 14. Continue losartan 50 mg twice a day. 15. Continue lactulose 37 g daily. 16. Hydralazine 10 mg IV q.4 h as needed. 17. Protonix 40 mg twice a day. 18. Solu-Medrol 20 mg IV once a day before breakfast. 19. Fluoxetine 20 mg daily. 20. Remeron 15 mg at bedtime. 21. Metoprolol 25 mg twice a day. 22. Theophylline 300 mg daily. 23. Lovenox 80 mg twice a day until the INR is between 2.0 to 3.0. 24. The patient is going to [facility] ICU for continuation, optimization of cardiopulmonary status and also IV antibiotics. HARPER CID MD Job#: [id number] CQ
[2017-12-19] MEDS ORDERED: METHYLPREDNISOLONE SOD SUCC 125 MG/2ML VIAL IV SCH (07:30)
[2017-12-19] MEDS ORDERED: METHYLPREDNISOLONE SOD SUCC 40 MG/ML VIAL IV SCH (07:30)
== END 2017-12-18 21:30 | DRG 4 ==
LOC: ER 19:25 → ERHOLD 22:42 → MED/SURG2 12-09 05:16 → ICU 12-09 10:59
PROVIDERS: ADMIT Internal Medicine; ATTEND Internal Medicine
PROC: 5A1955Z Respiratory Ventilation, Greater than 96 Consecutive Hours (ICD-10-PCS; principal; 2017-12-09)
PROC: 0BH17EZ Insertion of Endotracheal Airway into Trachea, Via Natural or Artificial Opening (ICD-10-PCS; 2017-12-09)
PROC: 02HV33Z Insertion of Infusion Device into Superior Vena Cava, Percutaneous Approach (ICD-10-PCS; 2017-12-14)
PROC: 0DH64UZ Insertion of Feeding Device into Stomach, Percutaneous Endoscopic Approach (ICD-10-PCS; 2017-12-16)
PROC: 0B110F4 Bypass Trachea to Cutaneous with Tracheostomy Device, Open Approach (ICD-10-PCS; 2017-12-17)
DX: J96.21 Acute and chronic respiratory failure with hypoxia (principal); J15.9 Unspecified bacterial pneumonia; J69.0 Pneumonitis due to inhalation of food and vomit; J44.0 Chronic obstructive pulmonary disease with (acute) lower respiratory infection; D68.51 Activated protein C resistance; E87.2 Acidosis; N17.9 Acute kidney failure, unspecified; J44.1 Chronic obstructive pulmonary disease with (acute) exacerbation; R07.9 Chest pain, unspecified; F17.210 Nicotine dependence, cigarettes, uncomplicated; Z86.718 Personal history of other venous thrombosis and embolism; Z79.01 Long term (current) use of anticoagulants; E78.00 Pure hypercholesterolemia, unspecified; K21.9 Gastro-esophageal reflux disease without esophagitis; F41.9 Anxiety disorder, unspecified; E03.9 Hypothyroidism, unspecified; I48.2 Chronic atrial fibrillation; I95.9 Hypotension, unspecified
CPT/HCPCS: 36415; 36430; 36569; 36600; 43246; 71045; 71250; 74018; 80048; 80053; 80061; 80198; 81001; 82550; 82553; 82805; 82948; 83605; 83735; 83880; 84100; 84436; 84443; 84479; 84484; 85025; 85610; 85730; 86850; 86900; 87040; 87070; 87186; 87205; 87493; 93005; 94002; 94003; 94640; 94660; 96360; 96361; 96366; 97139; 99284; J0360; J0456; J0696; J1100; J1650; J1940; J2001; J2250; J2270; J2405; J2543; J2930; J3475; J7030; J7040; J7042; J7050; P9017

== ENCOUNTER 2018-01-26 16:05 | Inpatient (IN) | payer BC ==
[~2018-01-26] VITALS: Ht 162.6 cm; Wt 74.2 kg
[~2018-01-26 16:05] MED LIST: ALBUTEROL2.5 MG/3 M NEB; CARVEDILOL12.5 MG PO; CLONAZEPAM0.5 MG PO; CYCLOBENZAPRINE10 MG PO; FLUOXETINE HCL20 MG PO; FOLIC ACID-VIT1 EAC1; FOLIC ACID1 MG PO; JANTOVEN10 MG PO; LACTULOSE PO; LEVOTHYROXINE50 MCG PO; LOSARTAN POTASS25 MG PO; MIRALAX17 GM PO; MIRTAZAPINE15 MG PO; MONTELUKAST SOD10 MG PO; NAPROXEN500 MG PO; OMEPRAZOLE40 MG PO; PRAVASTATIN SOD40 MG PO; PREDNISONE20 MG PO; PROAIR HFA INH8.5 GM INH; SENNOSIDES8.6 MG PO; TRELEGY INH; ULTRAM 50MG50 MG PO; ULTRAM50 MG PO; VITAMIN D31000 UNI1 PO; VSL#3 CAPSULE1 EACH PO
[2018-01-26] MEDS: ALBUTEROL SULF 0.083% NEB SOLN 3 ML NEB NEB NR ×2 (16:10→17:22)
[2018-01-26] MEDS ORDERED: IPRATROPIUM BROMIDE 0.02% 2.5 ML NEB NEB ONE (16:15)
[2018-01-26] MEDS ORDERED: SODIUM CHLORIDE 0.9% 1000ML 1,000 ML IV STA (16:18)
[2018-01-26 16:29] LABS: BASOPHILS % 0.4 % (0.0-1.0); EOSINOPHILS # (AUTO) 0.2 (0.0-0.4); EOSINOPHILS % 2.6 % (0.0-6.0); HEMATOCRIT 34.4 % (34.2-44.1); HEMOGLOBIN 11.3 g/dL (12.0-16.0); LYMPHOCYTES # (AUTO) 2.6 (1.0-3.2); LYMPHOCYTES % 27.2 % (18.0-39.1); MEAN CORPUSCULAR HEMOGLOBIN 29.4 pg (28-32); MEAN CORPUSCULAR HGB CONC 32.8 g/dL (31-35); MEAN CORPUSCULAR VOLUME 89.4 fL (81-99); MONOCYTES # (AUTO) 0.6 (0.2-0.8); MONOCYTES % 6.1 % (4.4-11.3); NEUTROPHILS # (AUTO) 5.9 (2.1-6.9); PLATELET COUNT 411 x10e3/uL (140-360); RED BLOOD COUNT 3.85 x10e6/uL (3.6-5.1); RED CELL DISTRIBUTION WIDTH 15.3 % (11.7-14.4)
[2018-01-26] MEDS ORDERED: METHYLPREDNISOLONE SOD SUCC 125 MG/2ML VIAL IV NR (16:30)
[2018-01-26 16:44] LABS: CLARITY,URINE HAZY (CLEAR); COLOR,URINE YELLOW (YELLOW); LEUKOCYTE ESTERASE ,URINE TRACE (NEGATIVE); NITRITE,URINE NEGATIVE (NEGATIVE); PROTEIN,URINE DIPSTICK NEGATIVE (NEGATIVE)
[2018-01-26 16:45] LABS: BILIRUBIN,URINE NEGATIVE (NEGATIVE); KETONES,URINE TRACE (NEGATIVE); URINE UROBILINOGEN 0.2 mg/dL (0.2 - 1)
[2018-01-26] MEDS ORDERED: AMBIEN5 MG PO (16:50)
[2018-01-26] MEDS ORDERED: VITAMIN D250000 UNIT PEG (16:50)
[2018-01-26] MEDS ORDERED: PANTOPRAZOLE SO40 MG PO (16:50)
[2018-01-26] MEDS ORDERED: SPIRIVA18 MCG INH (16:50)
[2018-01-26] MEDS ORDERED: ANORO INH (16:50)
[2018-01-26] MEDS ORDERED: ATORVASTATIN CA10 MG PO (16:50)
[2018-01-26 16:58] LABS: PARTIAL THROMBOPLASTIN TIME 33.1 seconds (23.8-35.5)
[2018-01-26 17:06] LABS: ALANINE AMINOTRANSFERASE 26 IU/L (0-55); ALBUMIN 3.9 g/dL (3.5-5.0); ALBUMIN/GLOBULIN RATIO 1.3 (0.8-2.0); ALKALINE PHOSPHATASE 78 IU/L (40-150); ANION GAP 16.4 mmol/L (8-16); BLOOD UREA NITROGEN 10 mg/dL (7-26); BUN/CREATININE RATIO 12 (6-25); CALCIUM 9.8 mg/dL (8.4-10.2); CARBON DIOXIDE 24 mmol/L (22-29); CHLORIDE 106 mmol/L (98-107); CREATINE KINASE 36 IU/L (29-168); CREATININE, SERUM 0.85 mg/dL (0.57-1.11); EST GLOMERULAR FILTRATION RATE > 60 ML/MIN (60-); GLUCOSE 104 mg/dL (74-118); MAGNESIUM 1.8 MG/DL (1.3-2.1); POTASSIUM 3.4 mmol/L (3.5-5.1); SODIUM 143 mmol/L (136-145)
[2018-01-26 17:13] LABS: BACTERIA,URINE FEW /HPF; EPITHELIAL CELLS,URINE MODERATE /LPF; RBC,URINE 0-5 /HPF (0-5); WBC,URINE (MAN) 0-5 /HPF (0-5)
[2018-01-26 17:15] LABS: INR 1.74; PROTHROMBIN TIME 21.7 seconds (11.9-14.5)
[2018-01-26] MEDS ORDERED: NEOMYCIN/POLYMYX/BACITR OINT 0.9 GM PKT TOP ONE (17:30)
[2018-01-26] MEDS ORDERED: MORPHINE SULFATE 2 MG/ML SYR IV NR (17:30)
--- NOTE | 2018-01-26 17:48 | Diagnostic Imaging Report ---
EXAMINATION: CHEST SINGLE (PORTABLE) INDICATION: Shortness of breath. ^sob COMPARISON: Chest radiograph 12/14/2017 FINDINGS: AP view TUBES and LINES: None. LUNGS: Lungs are well inflated. Mild bibasilar atelectasis. There is no evidence of pneumonia or pulmonary edema. PLEURA: No pleural effusion or pneumothorax. HEART AND MEDIASTINUM: The cardiomediastinal silhouette is unremarkable. BONES AND SOFT TISSUES: No acute osseous lesion. Soft tissues are unremarkable. UPPER ABDOMEN: No free air under the diaphragm. IMPRESSION: No acute thoracic abnormality. Signed by: DR. Dino Leach MD on 01/26/2018 5:45 PM
[2018-01-26] MEDS: AZITHROMYCIN 250 MG TAB PO SCH (18:05)
[2018-01-26] MEDS: CEFTRIAXONE SOD 1 GM VIAL IV SCH (18:05)
--- NOTE | 2018-01-26 18:20 | Diagnostic Imaging Report ---
EXAM: CT Chest WITH contrast 01/26/2018 4:18 PM INDICATION: Shortness of breath, chest tightness, pale. ^PE PROTOCOL ^[id number] ^[id number] COMPARISON: Chest CT 12/14/2017 TECHNIQUE: Chest was scanned utilizing a multidetector helical scanner from the lung apex through the level of the adrenal glands without administration of IV contrast. Coronal and sagittal reformations were obtained. PE protocol was performed. IV CONTRAST: 100 mL of Isovue-370 COMPLICATIONS: None RADIATION DOSE: Total DLP: 468.9 mGy*cm Estimated effective dose: (DLP x 0.014 x size factor) mSv CTDIvol has been reviewed. It is below the limits set by the Radiation Protocol Committee (RPC). Dose modulation, iterative reconstruction, and/or weight based adjustment of the mA/kV was utilized to reduce the radiation dose to as low as reasonably achievable. FINDINGS: LINES/ TUBES: None. LUNGS AND AIRWAYS: No filling defects to the level of the segmental pulmonary arteries. Left lower lobe mucous plugging with collapse of the left lower lobe. Mild additional bibasilar asilar atelectasis. Centrilobular emphysematous changes. Stable 3 mm left upper lobe nodule (series 3 image 28) compared to 12/14/2017. PLEURA: The pleural spaces are clear. HEART AND MEDIASTINUM: The thyroid gland is normal. Prominent but subcentimeter mediastinal lymph nodes measuring up to 0.9 cm. The heart is normal in size.. There is no pericardial effusion. Main pulmonary artery measures 2.3 cm in diameter, within normal limits. Ascending aorta measures 3 cm diameter, within normal limits. UPPER ABDOMEN: Stable left adrenal gland thickening which can be seen with hyperplasia. Otherwise, limited views of the incompletely visualized liver, pancreatic tail, and left kidney are unremarkable. Spleen unremarkable. BONES: The visualized bony thorax is within normal limits. SOFT TISSUES: Unremarkable. IMPRESSION: No pulmonary emboli. Left lower lobe mucus plugging with left lower lobe collapse. Signed by: DR. Dino Leach MD on 01/26/2018 6:17 PM
[2018-01-26] MEDS ORDERED: IOPAMIDOL 370 MG/ML 200 ML INFUS..BTL INJ ONE (19:29)
[2018-01-26] MEDS ORDERED: SODIUM CHLORIDE 0.9% 50ML 50 ML ONE (19:29)
[2018-01-26] MEDS: IPRATROPIUM BROMIDE 0.02% 2.5 ML NEB NEB SCH ×2 (19:45→23:50)
[2018-01-26] MEDS: ALBUTEROL SULF 0.083% NEB SOLN 3 ML NEB NEB SCH ×2 (19:45→23:50)
[2018-01-26 20:32] VITALS: BP 133/76
[2018-01-26] MEDS: METHYLPREDNISOLONE SOD SUCC 125 MG/2ML VIAL IV SCH (21:26)
[2018-01-26 22:31] VITALS: BP 133/76
[2018-01-27] VITALS (8 sets, daily range): BP systolic 110–129; BP diastolic 55–75
[2018-01-27 02:29] LABS: BASOPHILS % 0.2 % (0.0-1.0); HEMATOCRIT 32.1 % (34.2-44.1); HEMOGLOBIN 10.7 g/dL (12.0-16.0); LYMPHOCYTES # (AUTO) 0.8 (1.0-3.2); LYMPHOCYTES % 13.2 % (18.0-39.1); MEAN CORPUSCULAR HEMOGLOBIN 29.5 pg (28-32); MEAN CORPUSCULAR HGB CONC 33.3 g/dL (31-35); MEAN CORPUSCULAR VOLUME 88.4 fL (81-99); MONOCYTES # (AUTO) 0.1 (0.2-0.8); MONOCYTES % 0.9 % (4.4-11.3); PLATELET COUNT 348 x10e3/uL (140-360); RED BLOOD COUNT 3.63 x10e6/uL (3.6-5.1); RED CELL DISTRIBUTION WIDTH 15.1 % (11.7-14.4)
[2018-01-27 02:46] LABS: CREATINE KINASE 33 IU/L (29-168)
[2018-01-27 02:48] LABS: ANION GAP 16.5 mmol/L (8-16); BLOOD UREA NITROGEN 7 mg/dL (7-26); BUN/CREATININE RATIO 10 (6-25); CALCIUM 9.2 mg/dL (8.4-10.2); CARBON DIOXIDE 22 mmol/L (22-29); CHLORIDE 106 mmol/L (98-107); EST GLOMERULAR FILTRATION RATE > 60 ML/MIN (60-); GLUCOSE 144 mg/dL (74-118); POTASSIUM 3.5 mmol/L (3.5-5.1); SODIUM 141 mmol/L (136-145)
[2018-01-27] MEDS: IPRATROPIUM BROMIDE 0.02% 2.5 ML NEB NEB SCH ×6 (04:00→23:15)
[2018-01-27] MEDS: ALBUTEROL SULF 0.083% NEB SOLN 3 ML NEB NEB SCH ×6 (04:00→23:15)
[2018-01-27] MEDS: METHYLPREDNISOLONE SOD SUCC 125 MG/2ML VIAL IV SCH ×2 (05:38→13:57)
[2018-01-27] MEDS: LOPERAMIDE HCL 2 MG CAP PO PRN ×2 (09:07→20:22)
[2018-01-27] MEDS ORDERED: CLONAZEPAM 1 MG TAB PO PRN (10:15)
[2018-01-27] MEDS ORDERED: TRAMADOL HCL 50 MG TAB PO PRN (10:15)
[2018-01-27 10:26] LABS: CREATINE KINASE 26 IU/L (29-168)
[2018-01-27] MEDS ORDERED: ERGOCALCIFEROL 50,000 UNIT CAP PO SCH (14:00)
[2018-01-27] MEDS: ACETYLCYSTEINE 200 MG/ML 4ML VIAL INH SCH ×2 (15:00→19:27)
--- NOTE | 2018-01-27 15:08 | Consultation ---
DATE OF CONSULTATION: PULMONARY CONSULTATION REASON FOR CONSULTATION: COPD, shortness of breath. HPI: Ms. Chahal is a 57-year-old female. She has severe COPD. Very well known to me. Recent hospitalization with severe COPD exacerbation resulting in respiratory failure, intubation and tracheostomy. She recently was discharged from [facility] after she was decannulated. She was doing well and was seen by me in the office a week and a half ago when she was breathing well. She was continued on her inhalers. She received influenza vaccine in the office. She denies any chest pain, nausea, vomiting now. Her symptoms started yesterday when she started having severe chest pressure and shortness of breath. She used Mucinex nebulizer and did not improve, so she decided to come to the emergency room. In the emergency room, the patient underwent a CT of the chest, which showed no pulmonary embolism. However, it showed left lower lobe collapse with possibly mucous plug. REVIEW OF SYSTEMS GENERAL: Denies any fever or chills. HEAD: Denies any head trauma. ENT: Denies any earache. CVS: Denies any chest pain. RESPIRATORY: Shortness of breath. GI: Denies any nausea or vomiting. OTHER: Rest of the review of systems are negative except as in HPI. PAST MEDICAL HISTORY: Hypertension, factor V Leiden mutation, severe COPD, anxiety. PAST SURGICAL HISTORY: Recent tracheostomy. FAMILY AND SOCIAL HISTORY: Patient has been at [facility]. LABS: Sodium 141, potassium 3.5, BUN 7, creatinine 0.7. White count of 5.8, hemoglobin 10.7, platelets 348. ASSESSMENT AND PLAN: Ms. Chahal is a 57-year-old female. She presented with worsening shortness of breath. Recently discharged from the hospital with rough hospital course requiring tracheostomy for chronic respiratory failure and prolonged weaning. CURRENT PROBLEMS 1. Chronic obstructive pulmonary disease exacerbation. 2. Factor V Leiden mutation. 3. Severe chronic obstructive pulmonary disease. 4. Anxiety. PLAN 1. Continue the patient on IV Solu-Medrol. I will reduce the dose to 20 mg IV q.8 h. 2. Nebulizer treatment. 3. Coumadin for factor V Leiden mutation. 4. I will also start the patient on Mucomyst as the patient has left lower lobe mucous plug and collapse. If the left lower lobe mucous plug and collapse are not resolved, then the patient may need bronchoscopy. This was explained to her in detail. Job#: [id number]
[2018-01-27] MEDS: PANTOPRAZOLE SOD 40 MG TABEC PO SCH (17:13)
[2018-01-27] MEDS: AZITHROMYCIN 250 MG TAB PO SCH (17:13)
[2018-01-27] MEDS: CEFTRIAXONE SOD 1 GM VIAL IV SCH (17:13)
[2018-01-27] MEDS: WARFARIN SOD 5 MG TAB PO SCH (17:14)
[2018-01-27] MEDS: WARFARIN SOD 2 MG TAB PO SCH (17:14)
[2018-01-27] MEDS ORDERED: ALBUTEROL SULF 0.083% NEB SOLN 3 ML NEB NEB PRN (17:45)
[2018-01-27] MEDS ORDERED: ACETYLCYSTEINE 20% INHAL SOLN 30 ML VIAL INH SCH (18:00)
--- NOTE | 2018-01-27 18:43 | History and Physical ---
HISTORY OF PRESENT ILLNESS: The patient is a 57-year-old female with past medical history positive for COPD, Factor V deficiency, depression and anxiety. The patient came here with shortness of breath and chest pain. REVIEW OF SYSTEMS: CARDIOVASCULAR: She had a tightness kind of chest pain with no radiation that lasted a few hours. No palpitations. RESPIRATORY: Shortness of breath on exertion. No cough. No phlegm. GASTROINTESTINAL: No nausea, no vomiting. She does have diarrhea for a long time. ALLERGIES: NOT ALLERGIC TO ANY MEDICATIONS. SOCIAL HISTORY: She smokes. She does not drink alcohol. PAST MEDICAL HISTORY: Alcohol. PHYSICAL EXAMINATION: VITAL SIGNS: Blood pressure 110/57, temperature 96.8, heart rate 78 per minute. Respiratory rate 20 per minute. Oxygen saturation 96%. HEART: Regular rhythm. No murmur. No extra sounds. LUNGS: Decreased breath sounds bilaterally. ABDOMEN: Soft. EXTREMITIES: Show no evidence of cyanosis, edema or trauma. Valerio's sign is negative. On the chest CT showed mucus plug in the left lung, and nothing else. EKG showed normal sinus rhythm. No evidence of any ST segment elevation or depression. Bilateral Doppler on both lower extremities came back negative for no DVTs. Cardiac enzymes times 3 are completely normal. On the BMP sodium 141, potassium 3.5, chloride 106, CO2 22, BUN 7, creatinine 0.70, glucose 144. On the CBC white blood count 5.83, hemoglobin 10.7, hematocrit 32.1, platelet count 348,000. PT 21.7. PTT 33.1. INR 1.74. AST 21. ALT 26, total bilirubin 0.7, alkaline phosphatase 78. FINAL IMPRESSION: 1. Episode of chest pain, rule out coronary artery disease. 2. Chronic obstructive pulmonary disease exacerbation. 3. Factor V deficiency. Coagulopathy because of that. 4. Depression. 5. Anxiety. PLAN OF TREATMENT: Continue albuterol and Atrovent q.4 h. Zithromax 500 mg IV q. 24 hours. Rocephin 1 gram IV q.24 hour. Clonazepam 1 mg q.8. h as needed for anxiety. Protonix 40 mg p.o. twice a day. Coumadin 2 mg daily. Loperamide 2 mg as needed for diarrhea. Lipitor 10 mg daily. Ambien 5 mg at night p.r.n. for sleep. Ergocalciferol 50,000 units once a week. Tramadol 50 mg IV q.6. h. as needed for pain. Singulair 10 mg daily at nighttime. Folic acid 0.5 mg daily. Mucomyst q.6 hours. Tylenol 650 mg p.o. q.4. h.as needed for pain or fever. Fluoxetine 20 mg daily. Coumadin 5 mg daily and Solu-Medrol 20 mg IV q.8. h. Going to get a psychiatric consult with Dr. Nunn because of anxiety and panic attacks and depression. Also cardiology consult Dr. Dawn Coreas for atypical chest pain that she had. Job#: [id number]
[2018-01-27] MEDS: ALBUTEROL SULFATE HFA 8GM INHALATION AEROSOL INH SCH ×2 (19:27→23:15)
[2018-01-27] MEDS: ATORVASTATIN 10 MG TAB PO SCH (20:22)
[2018-01-27] MEDS: FOLIC ACID 1 MG TAB PO SCH (20:22)
[2018-01-27] MEDS: MONTELUKAST SODIUM 10 MG TAB PO SCH (20:22)
[2018-01-27] MEDS ORDERED: ZOLPIDEM TARTRATE 5 MG TAB PO PRN (21:00)
[2018-01-27] MEDS ORDERED: METHYLPREDNISOLONE SOD SUCC 125 MG/2ML VIAL IV SCH (22:00)
[2018-01-27] MEDS: METHYLPREDNISOLONE SOD SUCC 40 MG/ML VIAL IV SCH (22:00)
[2018-01-28] VITALS (7 sets, daily range): BP systolic 109–135; BP diastolic 51–73
[2018-01-28] MEDS: ALBUTEROL SULFATE HFA 8GM INHALATION AEROSOL INH SCH ×6 (03:01→22:00)
[2018-01-28] MEDS: ALBUTEROL SULF 0.083% NEB SOLN 3 ML NEB NEB SCH ×6 (03:01→23:45)
[2018-01-28] MEDS: IPRATROPIUM BROMIDE 0.02% 2.5 ML NEB NEB SCH ×6 (03:01→23:45)
[2018-01-28 04:34] LABS: BASOPHILS % 0.1 % (0.0-1.0); HEMATOCRIT 33.6 % (34.2-44.1); HEMOGLOBIN 10.8 g/dL (12.0-16.0); LYMPHOCYTES # (AUTO) 1.3 (1.0-3.2); LYMPHOCYTES % 8.6 % (18.0-39.1); MEAN CORPUSCULAR HGB CONC 32.1 g/dL (31-35); MEAN CORPUSCULAR VOLUME 90.1 fL (81-99); MONOCYTES # (AUTO) 0.6 (0.2-0.8); NEUTROPHILS # (AUTO) 13.5 (2.1-6.9); NEUTROPHILS % 86.7 % (38.7-80.0); PLATELET COUNT 392 x10e3/uL (140-360); RED BLOOD COUNT 3.73 x10e6/uL (3.6-5.1); RED CELL DISTRIBUTION WIDTH 15.5 % (11.7-14.4)
[2018-01-28 04:54] LABS: ANION GAP 16.8 mmol/L (8-16); BUN/CREATININE RATIO 19 (6-25); CALCIUM 9.7 mg/dL (8.4-10.2); CARBON DIOXIDE 25 mmol/L (22-29); CHLORIDE 102 mmol/L (98-107); CREATININE, SERUM 0.77 mg/dL (0.57-1.11); EST GLOMERULAR FILTRATION RATE > 60 ML/MIN (60-); GLUCOSE 136 mg/dL (74-118); POTASSIUM 3.8 mmol/L (3.5-5.1); SODIUM 140 mmol/L (136-145)
[2018-01-28 04:55] LABS: BLOOD UREA NITROGEN 15 mg/dL (7-26)
[2018-01-28] MEDS: METHYLPREDNISOLONE SOD SUCC 40 MG/ML VIAL IV SCH ×3 (05:25→22:15)
--- NOTE | 2018-01-28 06:03 | Diagnostic Imaging Report ---
EXAMINATION: CHEST SINGLE (PORTABLE) INDICATION: Left lower lobe atelectasis. ^left lower lobe atelectasis ^[id number] ^[id number] COMPARISON: Chest CT 01/26/2018 FINDINGS: AP view TUBES and LINES: None. LUNGS: Lungs are well inflated. Triangular shaped retrocardiac opacity noted. PLEURA: No pleural effusion or pneumothorax. HEART AND MEDIASTINUM: The cardiomediastinal silhouette is unremarkable. BONES AND SOFT TISSUES: No acute osseous lesion. Soft tissues are unremarkable. UPPER ABDOMEN: No free air under the diaphragm. IMPRESSION: Persistent left lower lobe collapse. Signed by: DR. Dino Leach MD on 01/28/2018 6:00 AM
[2018-01-28] MEDS: LOPERAMIDE HCL 2 MG CAP PO PRN ×2 (06:17→12:26)
[2018-01-28] MEDS: ACETYLCYSTEINE 200 MG/ML 4ML VIAL INH SCH ×4 (06:50→19:20)
[2018-01-28] MEDS ORDERED: ASPIRIN 325 MG TAB PO SCH (09:00)
[2018-01-28] MEDS ORDERED: WARFARIN SODIUM 7 MG PO SCH (09:00)
[2018-01-28] MEDS ORDERED: FLUOXETINE HCL 20 MG CAP PO SCH (09:00)
[2018-01-28] MEDS: PANTOPRAZOLE SOD 40 MG TABEC PO SCH ×2 (09:07→16:30)
[2018-01-28] MEDS: ASPIRIN 81 MG ENTERIC COATED PO SCH (09:07)
--- NOTE | 2018-01-28 12:26 | Diagnostic Imaging Report ---
Right knee MRI without contrast. History: Knee pain. Decreased range of motion. Pain not responding to conservative management. Comparison: None. Technique: Multiplanar multi-sequence MRI of the knee without contrast. Findings: Medial compartment: There is mild mid substance degeneration of the medial meniscus without tear. The medial compartmental articular cartilage surfaces are slightly thinned with regions of fraying and fissuring. The medial collateral ligament complex is intact. Lateral compartment: There is a nondisplaced tear involving the anterior horn and body segments of the lateral meniscus. The lateral compartmental articular cartilage surfaces are slightly thinned with regions of fraying and fissuring. The lateral collateral ligament complex is intact. Intercondylar notch: The ACL and PCL are intact. Patellofemoral compartment: There is articular cartilage fraying and deep fissuring in the patellofemoral compartment with mild underlying bone marrow edema. Extensor mechanism: The quadriceps and patellar tendons are normal. Other findings: There is a joint effusion and synovitis. There is no acute fracture, subluxation or avascular necrosis. There is a lobulated septated Dominguez's cyst. IMPRESSION: Mild tricompartmental degenerative arthrosis in the knee most pronounced in the patellofemoral compartment with mild underlying bone marrow edema. Nondisplaced lateral meniscus tear. Joint effusion, synovitis and lobulated septated Dominguez's cyst. Signed by: Dr. Prabhu Navarrete M.D. on 01/28/2018 12:23 PM
[2018-01-28] MEDS: SERTRALINE HCL 50 MG TAB PO SCH (17:00)
[2018-01-28] MEDS ORDERED: CLONAZEPAM 1 MG TAB PO PRN (17:15)
--- NOTE | 2018-01-28 17:54 | Progress Note ---
DATE: January 28, 2018 INTERNAL MEDICINE PROGRESS NOTE SUBJECTIVE: Patient is doing better. PHYSICAL EXAM: VITAL SIGNS: Blood pressure is 109/51, temperature 97.5. Heart rate 87 per minute. Respiratory rate 19 per minute. Ox saturation 95%. HEART: Regular rhythm. No murmur. No extra sounds. LUNGS: Decreased breath sounds bilaterally. ABDOMEN: Soft. EXTREMITIES: Show no evidence of cyanosis, edema or trauma. On the BMP: Sodium 140, potassium 3.8, chloride 102, CO2 25, BUN 15, creatinine 0.77. Glucose 136. CBC: White blood count 15,500, hemoglobin 10.8, hematocrit 33.6, platelet count 392,000. PT 21.7 and INR 1.74, PTT 33.1. AST 21, ALT 26, total bilirubin 0.7, alkaline phosphatase 78. FINAL IMPRESSION: 1. Chronic obstructive pulmonary disease exacerbation. 2. Left lower lobe atelectasis. 3. Anxiety. 4. Factor V deficiency with history of coagulopathy and DVTs on the legs. PLAN OF TREATMENT: Continue albuterol and Atrovent q.4 h. Continue on Zithromax 500 mg IV once a day. Tylenol 350 mg q.4 h. as needed. Fluoxetine 20 mg daily. Coumadin 5 mg daily. Solu-Medrol 20 mg IV q.8 h. Ceftriaxone 1 gram IV once a day. Clonazepam 1 mg q.8 hours. Protonix 40 mg twice a day. Coumadin 2 mg daily. Albuterol q.4 h. 2 mg as needed. Lipitor 10 mg daily. Ambien 5 mg at night p.r.n. for sleep. Ergocalciferol 50,000 units once a week. Aspirin 81 mg daily. Tramadol 50 mg q.6 hours. Singulair 10 mg once a day. Folic acid 0.5 mg daily. Mucomyst 600 mg q.6 h. Job#: [id number]
[2018-01-28] MEDS: CEFTRIAXONE SOD 1 GM VIAL IV SCH (18:25)
[2018-01-28] MEDS: WARFARIN SOD 5 MG TAB PO SCH (18:25)
[2018-01-28] MEDS: AZITHROMYCIN 250 MG TAB PO SCH (18:25)
[2018-01-28] MEDS: WARFARIN SOD 2 MG TAB PO SCH (18:25)
[2018-01-28] MEDS: FOLIC ACID 1 MG TAB PO SCH (22:15)
[2018-01-28] MEDS: ATORVASTATIN 10 MG TAB PO SCH (22:15)
[2018-01-28] MEDS: MONTELUKAST SODIUM 10 MG TAB PO SCH (22:15)
--- NOTE | 2018-01-28 23:44 | Consultation ---
DATE OF CONSULTATION: CARDIOLOGY CONSULTATION REASON FOR CONSULTATION: Chest pain. HISTORY OF PRESENT ILLNESS: This is a 57-year-old woman with a history of tobacco use, factor 5 Leiden, chronic deep venous thrombosis, chronic obstructive pulmonary disease, depression, and anxiety who presented to the emergency department with progressive worsening shortness of breath and chest pain. The patient states that she developed central chest tightness associated with shortness of breath and cough, moderate intensity, no exertional symptoms, no severe pain, no radiation of the pain, no diaphoresis, nausea or vomiting. Upon arrival here, the patient was hemodynamically stable and she has had 3 sets of negative cardiac enzymes and normal ECG. Patient was found to have left lower lobe consolidation and collapse. She has been treated for chronic obstructive pulmonary disease exacerbation. REVIEW OF SYSTEMS: A 12-point review of systems was conducted as negative otherwise as above in the HPI. PAST MEDICAL HISTORY: Chronic obstructive pulmonary disease, tobacco use, factor V Leiden, depression, anxiety, and chronic DVT. PAST SURGICAL HISTORY: None recently reported. PAST FAMILY HISTORY: No premature coronary artery disease or sudden cardiac . SOCIAL HISTORY: Tobacco use. No illicit drug use or alcohol use. ALLERGIES: NO KNOWN DRUG ALLERGIES. MEDICATIONS: See medication reconciliation form. PHYSICAL EXAMINATION VITAL SIGNS: Temperature is 97.5, heart rate is 87, respirations are 19, blood pressure 109/51, and oxygen saturation 95% on room air. GENERAL: She is a well-appearing woman lying comfortably in bed. HEAD: Normocephalic and atraumatic. EYES: The extraocular muscles are intact. Conjunctivae are clear. NECK: No JVD. No bruits. CARDIOVASCULAR: Regular rate and rhythm. Normal S1 and S2. No murmurs. LUNGS: Diminished expiratory phase. No rales. ABDOMEN: Soft, nontender, and nondistended. EXTREMITIES: No edema. VASCULAR: Pulses 2+. SKIN: Warm, dry, and intact. NEUROLOGIC: No focal deficits noted. Cranial nerves are grossly intact. PSYCHIATRIC: Normal mood and affect. CT of the chest shows no pulmonary emboli. Left lower lobe mucus plugging with left lower lobe collapse and emphysematous changes. All laboratory data were reviewed and negative cardiac enzymes were noted. A 12-lead electrocardiogram shows normal sinus rhythm. IMPRESSIONS/RECOMMENDATIONS 1. Precordial pain. The patient has atypical symptoms of chest pain. She is ruled out for acute myocardial infarction with 3 sets of negative cardiac enzymes and a 12-lead electrocardiogram showing no active ischemia or injury. She had a normal nuclear stress test and echocardiogram in July 2016 in our clinic as an outpatient. Recommend continuation of aspirin and atorvastatin. 2. Factor V Leiden and chronic deep venous thrombosis. Continue warfarin for therapeutic international normalized ratio. 3. Chronic obstructive pulmonary disease exacerbation, likely the cause of her chest pain. Treatment per primary and pulmonary teams. Thank you for the consultation. We will follow along with you. Job#: [id number]
[2018-01-29] VITALS (7 sets, daily range): BP systolic 110–134; BP diastolic 60–79
[2018-01-29] MEDS: ALBUTEROL SULFATE HFA 8GM INHALATION AEROSOL INH SCH ×7 (02:00→23:57)
[2018-01-29] MEDS: IPRATROPIUM BROMIDE 0.02% 2.5 ML NEB NEB SCH ×6 (04:10→23:20)
[2018-01-29] MEDS: ALBUTEROL SULF 0.083% NEB SOLN 3 ML NEB NEB SCH ×6 (04:10→23:20)
[2018-01-29 04:25] LABS: BASOPHILS % 0.1 % (0.0-1.0); HEMATOCRIT 35.4 % (34.2-44.1); HEMOGLOBIN 11.5 g/dL (12.0-16.0); LYMPHOCYTES # (AUTO) 1.1 (1.0-3.2); LYMPHOCYTES % 7.2 % (18.0-39.1); MEAN CORPUSCULAR HEMOGLOBIN 29.2 pg (28-32); MEAN CORPUSCULAR HGB CONC 32.5 g/dL (31-35); MEAN CORPUSCULAR VOLUME 89.8 fL (81-99); MONOCYTES # (AUTO) 0.3 (0.2-0.8); MONOCYTES % 2.2 % (4.4-11.3); NEUTROPHILS # (AUTO) 13.3 (2.1-6.9); NEUTROPHILS % 89.9 % (38.7-80.0); PLATELET COUNT 387 x10e3/uL (140-360); RED BLOOD COUNT 3.94 x10e6/uL (3.6-5.1); RED CELL DISTRIBUTION WIDTH 15.6 % (11.7-14.4)
[2018-01-29 04:35] LABS: INR 1.79; PROTHROMBIN TIME 22.2 seconds (11.9-14.5)
[2018-01-29] MEDS: METHYLPREDNISOLONE SOD SUCC 40 MG/ML VIAL IV SCH ×3 (05:51→23:06)
[2018-01-29] MEDS: ACETYLCYSTEINE 200 MG/ML 4ML VIAL INH SCH ×4 (07:00→19:15)
[2018-01-29] MEDS: PANTOPRAZOLE SOD 40 MG TABEC PO SCH ×2 (08:45→17:36)
[2018-01-29] MEDS: LOPERAMIDE HCL 2 MG CAP PO PRN (08:45)
[2018-01-29] MEDS: ASPIRIN 81 MG ENTERIC COATED PO SCH (08:46)
[2018-01-29] MEDS: SERTRALINE HCL 50 MG TAB PO SCH (08:46)
--- NOTE | 2018-01-29 12:31 | Progress Note ---
DATE: January 29, 2018 CARDIOLOGY PROGRESS NOTE SUBJECTIVE: Patient undergoing chest physiotherapy and nebulizer treatments. She is feeling overall better. She denies any chest pain. Her shortness of breath has improved somewhat. OBJECTIVE VITAL SIGNS: Temperature is 96.9, heart rate 83, respirations 18, blood pressure 128/75, oxygen saturation is 96% on 2 liters nasal cannula. GENERALLY: She is a well-appearing elderly, well-built woman in no apparent distress, oriented x3. NECK: No JVD. CARDIOVASCULAR: She is regular rate and rhythm. No murmurs. LUNGS: Diminished breath sounds. Decreased air excursion on expiration. ABDOMEN: Soft, nontender. EXTREMITIES: Trace edema. VASCULAR: 2+ pulses. NEUROLOGIC: No focal deficits noted. All laboratory data were reviewed. All imaging data reviewed. Lower extremity venous study shows no evidence of DVT. Telemetry monitoring revealed normal sinus rhythm. IMPRESSION AND RECOMMENDATIONS 1. Precordial pain. She has atypical symptoms that have resolved. She has negative cardiac enzymes. She had a stress test and echocardiogram in our office in July of 2016 which were normal. Symptoms likely related to her chronic obstructive pulmonary disease exacerbation and/or left lower lobe collapse. Continue chest physiotherapy and nebulizer treatment per primary team. 2. Chronic obstructive pulmonary disease. Continue current treatment. 3. Hyperlipidemia. Continue statin medications. 4. History of deep venous thrombosis and hypercoagulable state. Continue warfarin for therapeutic anticoagulation. Thank you for the consultation. No further cardiovascular workup is needed at this point in time. Will continue to follow. Job#: [id number] EV
--- NOTE | 2018-01-29 14:11 | Diagnostic Imaging Report ---
Frontal and lateral views of the chest. HISTORY: Atelectasis, left lower lobe, follow-up, COPD exacerbation COMPARISON: Chest radiograph January 28, 2018. CT of the chest January 26, 2018. DISCUSSION: Lungs: Persistent left lower lobe collapse with compensatory hyperinflation of the left upper lobe. Pleura: No pleural effusion or pneumothorax. Heart and mediastinum: The cardiac silhouette appears unchanged. Bones: Unchanged IMPRESSION: Persistent left lower lobe collapse, please refer to the recent CT of the chest for further details. Signed by: Dr. Anthony Weinberg D.O., M.M.M. on 01/29/2018 2:08 PM
--- NOTE | 2018-01-29 14:25 | Consultation ---
DATE OF CONSULTATION: January 28, 2018 PSYCHIATRIC CONSULTATION REASON FOR CONSULTATION: To evaluate patient's depression and anxiety. HISTORY OF PRESENTING ILLNESS: The patient is a 57-year-old female admitted to the hospital for COPD exacerbation. Psychiatric consultation is called to evaluate patient's mood. As per the medical record, patient has a history of COPD, factor V deficiency, depression and anxiety. Upon evaluation today, patient is found to be in the room. She is alert, awake and oriented to situation. She is tearful. Patient states that she has been feeling overwhelmed, depressed and anxious due to her medical issue which led her to be hospitalized and has subsequently led to the termination of her job. Patient is scared that she is unable to be able to provide for herself, paying the bills by herself. Patient has been very independent and does not want to burden her family members. Patient is feeling hopeless and helpless. She is not sure if life is worth living but denies any suicidal or homicidal ideation. Patient complained of poor sleep and appetite. She claims that Ambien is not helping her. Denies any hallucination. No paranoia elicited. PAST PSYCHIATRIC HISTORY: Patient denies past psychiatric history, denies past suicide attempts, denies any alcohol and drug use. FAMILY HISTORY: Denies. SOCIAL HISTORY: Patient lives alone. MENTAL STATUS EXAMINATION: Patient is an elderly female on oxygen. She is alert, awake and oriented to situation. Mood is depressed and anxious but cooperative. Affect is congruent with mood. Denies any suicidal or homicidal ideation. Denies any hallucination. Thought process is concrete. No delusion or paranoia elicited. Insight and judgment are fair. Memory appears to be grossly intact. CURRENT MEDICATION 1. Methylprednisolone. 2. Ipratropium bromide. 3. Albuterol. 4. Acetylcysteine. 5. Klonopin 1 mg p.o. q.8 h. p.r.n. 6. Loperamide. 7. Aspirin. 8. Pantoprazole. 9. Prozac 20 mg p.o. daily. 10. Valproic acid. 11. Atorvastatin. 12. Warfarin. 13. Azithromycin. 14. Ambien mg p.o. nightly. 15. Tramadol p.r.n. CURRENT LAB: WBC is 15.54, RBC is 3.73, hemoglobin 10.8, hematocrit is 36.6, platelet is 392. Sodium is 140, potassium 3.8, chloride is 102, CO2 is 25, BUN is 15. ASSESSMENT: Major depressive disorder, single episode. PLAN 1. Discontinue Prozac. 2. Reduce Klonopin from 1 mg p.o. q.8 h. p.r.n. to 0.5 mg p.o. q.6 h. p.r.n. 3. Add Zoloft 50 mg p.o. daily. 4. Add temazepam 15 mg p.o. nightly p.r.n. 5. Discontinue Ambien. 6. Monitor for mood. 7. Supportive therapy. Thank you for this consultation. Dictated by: COLBY Joya Job#: [id number] EV
--- NOTE | 2018-01-29 14:44 | Progress Note ---
DATE: January 29, 2018 PSYCHIATRIC PROGRESS NOTE Patient was evaluated and events noted. Patient is in the room. She continues to be tearful and overwhelmed and having anxiety due to medical issues and loss of job and financial problems. She denies any suicidal ideation. She denies any hallucinations. She denies any problems with sleep or appetite. She denies any side effects of medications. ASSESSMENT: Major depressive disorder, single episode. PLAN: Continue with Klonopin 0.5 mg p.o. q.6 h. p.r.n. Continue Zoloft 50 mg p.o. daily. Continue with temazepam 15 mg p.o. at bedtime p.r.n. Monitor for mood. Supportive therapy. DICTATED BY COLBY WARNER Job#: [id number] FL
[2018-01-29] MEDS: WARFARIN SOD 2 MG TAB PO SCH (17:36)
[2018-01-29] MEDS: AZITHROMYCIN 250 MG TAB PO SCH (17:36)
[2018-01-29] MEDS: CHOLESTYRAMINE 4 GM PACKET PO SCH (17:36)
[2018-01-29] MEDS: CEFTRIAXONE SOD 1 GM VIAL IV SCH (17:36)
[2018-01-29] MEDS: WARFARIN SOD 5 MG TAB PO SCH (17:36)
[2018-01-29] MEDS: FOLIC ACID 1 MG TAB PO SCH (20:32)
[2018-01-29] MEDS: MONTELUKAST SODIUM 10 MG TAB PO SCH (20:33)
[2018-01-29] MEDS: ATORVASTATIN 10 MG TAB PO SCH (20:33)
--- NOTE | 2018-01-29 23:42 | Discharge Summary ---
Patient is very depressed. She came with originally with COPD exacerbation, right knee pain. We found lateral meniscus tear, some evidence of arthritis, some evidence of septated Dominguez's cyst also. She had a collapsed left lower lung. Patient is being seen by Dr. Bruner for pulmonary. Patient is feeling better now. She is getting with treatment IV Solu-Medrol IV antibiotics. She is extremely depressed. We called Dr. Nunn because of that. She also had panic attacks. We called up cardiology, Dr. Celaya, because the patient was complaining of chest pain, when she came. Dr. Celaya saw the patient. Cardiac enzymes are negative. EKG is normal. She did have a stress test done a few months ago, which was apparently negative. So cardiology recommended outpatient workup. PHYSICAL EXAM VITALS: Blood pressure 120/60, temperature 97 degrees, heart rate 78 per minute, respiratory rate 18 per minute. Oxygen saturation 94%. HEART: Shows regular rhythm. Normal S1, S2 sounds. LUNGS: Clear bilaterally. ABDOMEN: Soft. EXTREMITIES: Show no evidence of cyanosis or trauma. On the BMP, sodium 140, potassium 3.8, chloride 102, CO2 25, BUN 15, creatinine 0.77, glucose 136. On the CBC, white blood count 14.8, hemoglobin 11.5, hematocrit 35.4, platelet count 387,000. PT 32.2, INR 1.79, PTT 33.1. AST 21, ALT 26, total bilirubin 0.7, alkaline phosphatase 78. FINAL IMPRESSIONS 1. Chronic obstructive pulmonary disease exacerbation. 2. Right knee pain secondary to lateral meniscus tear. 3. 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 4. Partial collapse on the left lower lung 5. Major depression. 6. Anxiety disorder. PLAN OF TREATMENT 1. Continue albuterol q.4 h. 2. Atrovent q.4 h as needed for shortness of breath. 3. Albuterol q.6 h [id number]. 4. She is taking Zithromax 500 mg IV once a day. 5. Tylenol 350 mg p.o. q.4 h as needed for pain or fever. 6. Folic acid 0.5 mg daily. 7. Mucomyst q.6 h. 8. Clonazepam 0.5 mg q.6 h as needed for anxiety. 9. Ceftriaxone 1 g IV once a day. 10. Lipitor 10 mg daily. 11. Coumadin 7 mg daily. 12. Solu-Medrol 20 mg IV q.8 h. 13. Zoloft 50 mg daily. 14. Loperamide 2 mg as needed for diarrhea. 15. Singulair 10 mg daily. 16. Temazepam 15 mg at bedtime. 17. Tramadol 50 mg q.6 h as needed for pain. 18. Protonix 40 mg twice a day. 19. Vitamin D 50,000 once a week. 20. Aspirin 81 mg daily. She also had chronic diarrhea. We checked the stool for C. difficile, came back negative. We are going to consult Dr. Reynaldo Pizarro for gastroenterology to see if any workup needs to be done. Tentative discharge for tomorrow pending evaluation from the orthopedic surgeon and the release from the pulmonary. HARPER CID MD Job#: [id number]
[2018-01-30] VITALS (8 sets, daily range): BP systolic 113–127; BP diastolic 58–79
[2018-01-30] MEDS: ALBUTEROL SULF 0.083% NEB SOLN 3 ML NEB NEB SCH ×6 (02:50→23:15)
[2018-01-30] MEDS: IPRATROPIUM BROMIDE 0.02% 2.5 ML NEB NEB SCH ×6 (02:50→23:15)
[2018-01-30 04:49] LABS: INR 1.69; PROTHROMBIN TIME 21.2 seconds (11.9-14.5)
[2018-01-30] MEDS: METHYLPREDNISOLONE SOD SUCC 40 MG/ML VIAL IV SCH ×3 (05:08→21:00)
[2018-01-30] MEDS: ALBUTEROL SULFATE HFA 8GM INHALATION AEROSOL INH SCH ×6 (06:00→23:51)
[2018-01-30] MEDS: ACETYLCYSTEINE 200 MG/ML 4ML VIAL INH SCH ×4 (07:00→19:15)
[2018-01-30] MEDS: PANTOPRAZOLE SOD 40 MG TABEC PO SCH ×2 (07:30→17:44)
[2018-01-30] MEDS: SERTRALINE HCL 50 MG TAB PO SCH (07:51)
[2018-01-30] MEDS: ASPIRIN 81 MG ENTERIC COATED PO SCH (07:51)
[2018-01-30] MEDS: CHOLESTYRAMINE 4 GM PACKET PO SCH ×2 (07:51→17:44)
[2018-01-30] MEDS ORDERED: LORAZEPAM INJ 2 MG/ML VIAL IV PRN ×2 (10:15→13:30)
[2018-01-30] MEDS ORDERED: LORAZEPAM INJ 2 MG/ML VIAL ONE (10:15)
[2018-01-30] MEDS ORDERED: ACETYLCYSTEINE 200 MG/ML 4ML VIAL ONE (10:29)
[2018-01-30] MEDS ORDERED: LIDOCAINE HCL 2% 30 ML TUBE ONE (10:30)
[2018-01-30] MEDS ORDERED: LIDOCAINE HCL 4% 50 ML BTL ONE (10:30)
[2018-01-30] MEDS ORDERED: OXYMETAZOLINE HCL 0.05% NAS 1 SPRAY BTL ONE (10:30)
[2018-01-30] MEDS ORDERED: MIDAZOLAM HCL 2 MG/2 ML VIAL ONE (12:43)
[2018-01-30] MEDS ORDERED: FENTANYL CITRATE/PF 100MCG/2 ML INJ ONE (12:43)
--- NOTE | 2018-01-30 13:18 | Operative Report ---
DATE OF PROCEDURE: PREPROCEDURE DIAGNOSIS: Left lower lobe atelectasis. POSTPROCEDURE DIAGNOSIS: Left lower lobe atelectasis. PROCEDURE PERFORMED: Bronchoscopy with bronchioalveolar lavage. PROCEDURE IN DETAIL: Bronchoscope was advanced through the LMA. Both lungs were examined. Trini was identified. Right lung was entered. Right upper lobe, middle lobe and lower lobe were examined. Thin secretions were suctioned out. Left side was entered. Left main bronchus had a mucous plug, which was suctioned clean. Left lower lobe had thin secretions and mucus, which were suctioned clean. No endobronchial lesion was seen. COMPLICATIONS: None. ESTIMATED BLOOD LOSS: 0. SAMPLES SENT: For Gram stain, culture and AFB. Job#: [id number] EV
[2018-01-30] MEDS ORDERED: LORAZEPAM 0.5 MG TAB PO PRN (13:30)
--- NOTE | 2018-01-30 14:13 | Consultation ---
DATE OF CONSULTATION: January 30, 2018 ORTHOPEDIC CONSULTATION CHIEF COMPLAINT: Right knee pain. HISTORY OF PRESENT ILLNESS: The patient is a medically frail 57-year-old lady who is complaining of some right knee pain. Her past history is significant for a recent 7-week hospitalization. She was admitted for an exacerbation of COPD. She spent time at [facility] and then was transferred to [place] [facility]-term acute care. She went home about 10 days ago. She noted the spontaneous onset of some right knee pain. She has no history of trauma. She states that the knee aches with walking. She has some mild discomfort when she is lying in bed. She says it is uncomfortable but not severely so. PAST MEDICAL HISTORY: She has a history of COPD, factor V deficiency, depression/anxiety. MEDICATIONS: See medication reconciliation list. ALLERGIES: SHE DENIES ANY MEDICATION ALLERGIES. SOCIAL HISTORY: She currently does not smoke. She states that she quit in mid November of this year. She does not drink alcohol. She is . 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 PHYSICAL EXAMINATION: She is awake and alert and oriented. She is in no obvious distress. She is receiving oxygen through a nasal cannula. Gross inspection of her right knee reveals some mildly increased valgus alignment. There is no swelling or erythema. Range of motion is fluid from 0 degrees to 130 degrees. She has normal stability to varus and valgus stress. She has a positive Richar test. She has some mild lateral joint line tenderness with Mehdi's testing. LABORATORY STUDIES: MRIs were reviewed. She has a chronic ACL deficiency and a lateral meniscal tear. IMPRESSION: Right knee anterior cruciate ligament deficiency and lateral meniscal tear. The findings were explained at length to the patient. She has a long-standing meniscal tear and ACL deficiency of her right knee. This is not something that recently happened. It is more likely that her prolonged hospitalization has led to some physical deconditioning. That has exacerbated these symptoms from the torn meniscus. I have recommended some low-impact in-bed exercises. With her history of COPD, she is not going to be able to do much aggressive physical therapy until her COPD improves. She is already on maximum medical management with fairly high-dose steroids. She is not a surgical candidate at this time. We have recommended that she come see us as an outpatient once she has stabilized her COPD. We will discuss further options at that time. Once again, I do not feel like arthroscopy is a likely alternative. Thank you for the consultation. Job#: [id number] EV
--- NOTE | 2018-01-30 16:30 | Progress Note ---
DATE: INTERNAL MEDICINE PROGRESS NOTE SUBJECTIVE: She is doing well now. She had a bronchoscopy done today by Dr. Bruner. She had a mucus plug on the left lung and the left lung was partially collapsed, so Dr. Bruner did a bronchoscopy and suctioned some of the mucus that she had over there. Patient is feeling better right now. She is still complaining of right knee pain. She was seen by Dr. Aponte, orthopedic surgeon, who recommended she have conservative medical treatment and physical therapy. PHYSICAL EXAM HEART: Regular rhythm. Normal S1, S2 sounds. LUNGS: Clear bilaterally. ABDOMEN: Soft. EXTREMITIES: Show no evidence of cyanosis, edema, trauma. On the BMP, sodium 140, potassium 3.8, chloride 102, CO2 25, BUN 15, creatinine 0.77, glucose 136. On the CBC, for white blood count 14.8, hemoglobin 11.5, hematocrit 35.4, platelet count 387,000. PT 21.2, INR 1.69, PTT 33.1. AST 21, ALT 26, total bilirubin 0.7, alkaline phosphatase 78. Blood pressure 127/70, temperature 96.3, heart rate 88 per minute, oxygen saturation 93%. PLAN OF TREATMENT 1. Continue albuterol and Atrovent q.4 hours around the clock and q.4-6 hours as needed. 2. Zithromax 500 mg IV once a day. 3. Ceftriaxone 1 g IV q.24 hours. 4. Tylenol 350 mg q.4 hours as needed. 5. Folic acid 0.5 mg at bedtime. 6. Mucomyst q.6 hours. 7. Sertraline 50 mg daily. 8. Lorazepam 0.5 mg twice a day. 9. Lipitor 10 mg daily. 10. Coumadin. We are going to increase to 8 mg daily because INR is still subtherapeutic. 11. Continue Solu-Medrol 20 mg IV q.8 hours. 12. Temazepam 15 mg at bedtime. 13. Lorazepam 0.5 mg IV q. 6 hours as needed. 14. Loperamide 2 mg as needed for diarrhea. 15. Singulair 10 mg daily. 16. Coumadin 7 mg daily. We are going to increase to 8 mg daily. 17. Albuterol q.4 hours. 18. Questran 1 packet twice a day. 19. Tramadol 50 mg q.6 hours. 20. Protonix 40 mg twice a day. 21. Ergocalciferol 50,000 units once a week. 22. Aspirin 81 mg daily. Tentative discharge for tomorrow. Job#: [id number] TA
[2018-01-30] MEDS: WARFARIN SOD 5 MG TAB PO SCH (17:44)
[2018-01-30] MEDS: AZITHROMYCIN 250 MG TAB PO SCH (17:44)
[2018-01-30] MEDS: LORAZEPAM 0.5 MG TAB PO SCH (17:44)
[2018-01-30] MEDS: WARFARIN SOD 2 MG TAB PO SCH (17:44)
[2018-01-30] MEDS: CEFTRIAXONE SOD 1 GM VIAL IV SCH (17:44)
[2018-01-30] MEDS: ATORVASTATIN 10 MG TAB PO SCH (20:58)
[2018-01-30] MEDS: TEMAZEPAM 15 MG CAP PO PRN (20:58)
[2018-01-30] MEDS: MONTELUKAST SODIUM 10 MG TAB PO SCH (20:58)
[2018-01-30] MEDS: FOLIC ACID 1 MG TAB PO SCH (20:58)
[2018-01-31 01:07] VITALS: BP 102/54
[2018-01-31] MEDS: IPRATROPIUM BROMIDE 0.02% 2.5 ML NEB NEB SCH ×6 (03:10→23:40)
[2018-01-31] MEDS: ALBUTEROL SULF 0.083% NEB SOLN 3 ML NEB NEB SCH ×6 (03:10→23:40)
[2018-01-31 05:00] LABS: BASOPHILS % 0.2 % (0.0-1.0); HEMATOCRIT 36.5 % (34.2-44.1); HEMOGLOBIN 11.9 g/dL (12.0-16.0); LYMPHOCYTES # (AUTO) 1.6 (1.0-3.2); LYMPHOCYTES % 12.3 % (18.0-39.1); MEAN CORPUSCULAR HEMOGLOBIN 29.4 pg (28-32); MEAN CORPUSCULAR HGB CONC 32.6 g/dL (31-35); MEAN CORPUSCULAR VOLUME 90.1 fL (81-99); MONOCYTES # (AUTO) 0.7 (0.2-0.8); MONOCYTES % 5.4 % (4.4-11.3); NEUTROPHILS # (AUTO) 10.4 (2.1-6.9); NEUTROPHILS % 80.9 % (38.7-80.0); PLATELET COUNT 381 x10e3/uL (140-360); RED BLOOD COUNT 4.05 x10e6/uL (3.6-5.1); RED CELL DISTRIBUTION WIDTH 15.3 % (11.7-14.4)
[2018-01-31 05:10] LABS: INR 1.68; PROTHROMBIN TIME 21.1 seconds (11.9-14.5)
[2018-01-31] MEDS: METHYLPREDNISOLONE SOD SUCC 40 MG/ML VIAL IV SCH (05:25)
[2018-01-31] MEDS: ALBUTEROL SULFATE HFA 8GM INHALATION AEROSOL INH SCH ×5 (06:00→22:30)
[2018-01-31 06:09] VITALS: BP 115/61
--- NOTE | 2018-01-31 06:51 | Diagnostic Imaging Report ---
EXAMINATION: CHEST SINGLE (PORTABLE) INDICATION: Left lower lobe collapse follow-up COMPARISON: Chest radiograph 01/28/[address] 01/26/2018 FINDINGS: AP view TUBES and LINES: None. LUNGS: Lungs are well inflated. Persistent triangular shaped retrocardiac opacity reflecting left lower lobe collapse with compensatory hyperinflation of the left upper lobe. Increased right basilar atelectasis. PLEURA: No pleural effusion or pneumothorax. HEART AND MEDIASTINUM: The cardiomediastinal silhouette is unremarkable. BONES AND SOFT TISSUES: No acute osseous lesion. Soft tissues are unremarkable. UPPER ABDOMEN: No free air under the diaphragm. IMPRESSION: Persistent left lower lobe collapse. Increased right basilar atelectasis. Signed by: DR. Dino Leach MD on 01/31/2018 6:47 AM
[2018-01-31] MEDS: ACETYLCYSTEINE 200 MG/ML 4ML VIAL INH SCH ×4 (07:24→22:30)
[2018-01-31] MEDS: PANTOPRAZOLE SOD 40 MG TABEC PO SCH ×2 (07:30→17:13)
[2018-01-31 08:00] VITALS: BP 119/62
[2018-01-31] MEDS: ASPIRIN 81 MG ENTERIC COATED PO SCH (09:00)
[2018-01-31] MEDS: LORAZEPAM 0.5 MG TAB PO SCH (09:00)
[2018-01-31] MEDS: SERTRALINE HCL 50 MG TAB PO SCH (09:00)
[2018-01-31] MEDS: CHOLESTYRAMINE 4 GM PACKET PO SCH ×2 (09:00→17:14)
[2018-01-31 12:00] VITALS: BP 120/63
[2018-01-31] MEDS ORDERED: PROPOFOL IV EMULSION 10 MG/ML 20 ML VIAL IV ONE (12:31)
[2018-01-31] MEDS ORDERED: LIDOCAINE HCL 2% LOCAL INJ 5 ML SDV VIAL INJ ONE (12:31)
[2018-01-31] MEDS ORDERED: SEVOFLURANE INHAL SOLN 250 ML PEN BTL INH ONE (12:31)
[2018-01-31 16:00] VITALS: BP 129/64
[2018-01-31] MEDS: WARFARIN SOD 2 MG TAB PO SCH (17:14)
[2018-01-31] MEDS: WARFARIN SOD 5 MG TAB PO SCH (17:14)
--- NOTE | 2018-01-31 17:38 | Discharge Summary ---
HISTORY OF PRESENT ILLNESS: A 57-year-old female with past medical history positive for COPD and also history of DVT, history of factor V deficiency, vitamin D deficiency, depression, hypercholesterolemia. Patient came to the hospital because of some chest pain. Patient was seen by cardiology. EKG was normal. Cardiac enzymes x3 were essentially negative. She had a stress test done apparently recently which showed no evidence of any significant ischemia. Patient was seen by Dr. Celaya, cardiology who released her to go home and follow up with him in a week. Dr. Bruner, pulmonology, did bronchoscopy because of a mucus plug on the left lung. She had some collapse of the left lower lobe of the lung. Patient is doing better right now. Patient is being released by all of the consultants to go home. The patient was seen also by Dr. Aponte who did an injection of the right knee where she had lateral meniscal tear. PHYSICAL EXAMINATION VITAL SIGNS: Blood pressure 118/62, temperature 97.9, heart rate 86 per minute, respiratory rate 18 per minute. Oxygen saturation 98%. HEART: Regular rhythm. No murmur. No extra sounds. LUNGS: Clear bilaterally. ABDOMEN: Soft. EXTREMITIES: Show no evidence of cyanosis, edema or trauma. On the BMP, sodium 140, potassium 3.8, chloride 102, CO2 25, BUN 15, creatinine 0.77. Glucose 136. On the CBC, white blood count 12.8, hemoglobin 8.9, hematocrit 36.5, platelet count 381,000. PT 21.1, INR 1.68, PTT 33.1. AST 21, ALT 26, total bilirubin 0.7, alkaline phos 78. FINAL IMPRESSION 1. Atypical chest pain. 2. Chronic obstructive pulmonary disease exacerbation. 3. Factor V deficiency. 4. Depression. 5. Panic attacks. 6. Right knee pain secondary to meniscal tears. PLAN OF TREATMENT: Continue albuterol and Atrovent q.4 hours as needed for shortness of breath. Continue folic acid 0.5 mg daily. Continue Mucomyst q.6 hours. Continue temazepam 15 mg at night p.r.n. for sleep. Continue Klonopin 1 mg q.8 hours as needed for anxiety or panic attacks. Continue Lipitor 10 mg daily. Coumadin is going to increased to 8 mg daily because the INR is not therapeutic yet. Continue Questran 4 grams twice a day. Prednisone is going to be given. Medrol Dosepak to be weaned as tolerated. Singulair 10 mg daily. Aspirin 81 mg daily. Tramadol 50 mg q.6 hours as needed for pain. Protonix 40 mg twice a day. Vitamin D 50,000 units once a week. Zoloft 50 mg daily. Follow up with Dr. Bruner in a week. Follow up with me in a couple of weeks. Follow up with orthopedic surgeon, Dr. Aponte, and follow up with cardiology, Dr. Celaya, in a week. HARPER CID MD Job#: [id number] GH
[2018-01-31] MEDS: ACETAMINOPHEN 325 MG TAB PO PRN (17:50)
[2018-01-31 20:00] VITALS: BP 129/78
[2018-01-31] MEDS: MONTELUKAST SODIUM 10 MG TAB PO SCH (20:09)
[2018-01-31] MEDS: FOLIC ACID 1 MG TAB PO SCH (20:09)
[2018-01-31] MEDS: ATORVASTATIN 10 MG TAB PO SCH (20:17)
[2018-01-31] MEDS: TEMAZEPAM 15 MG CAP PO PRN (21:41)
[2018-02-01] VITALS: BP 132/74
[2018-02-01] MEDS: ALBUTEROL SULFATE HFA 8GM INHALATION AEROSOL INH SCH ×2 (02:00→06:00)
[2018-02-01] MEDS: IPRATROPIUM BROMIDE 0.02% 2.5 ML NEB NEB SCH ×2 (03:22→07:30)
[2018-02-01] MEDS: ALBUTEROL SULF 0.083% NEB SOLN 3 ML NEB NEB SCH ×2 (03:22→07:35)
[2018-02-01 04:00] VITALS: BP 122/61
[2018-02-01 05:30] LABS: INR 1.5; PROTHROMBIN TIME 19.4 seconds (11.9-14.5)
[2018-02-01] MEDS: ACETAMINOPHEN 325 MG TAB PO PRN (05:52)
[2018-02-01] MEDS: PANTOPRAZOLE SOD 40 MG TABEC PO SCH (07:30)
[2018-02-01] MEDS: ACETYLCYSTEINE 200 MG/ML 4ML VIAL INH SCH (07:35)
[2018-02-01 08:00] VITALS: BP 120/59
[2018-02-01] MEDS: CHOLESTYRAMINE 4 GM PACKET PO SCH (09:00)
[2018-02-01] MEDS ORDERED: PREDNISONE 20 MG TAB PO SCH (09:00)
[2018-02-01] MEDS: ASPIRIN 81 MG ENTERIC COATED PO SCH (09:00)
[2018-02-01] MEDS: SERTRALINE HCL 50 MG TAB PO SCH (09:00)
--- NOTE | 2018-02-03 12:15 | Progress Note ---
DATE: January 31, 2018 PSYCHIATRIC PROGRESS NOTE Patient evaluated and events noted. Patient is in the room. She is still tearful. She is still adjusting to her new situation. She admits to depression and anxiety. She denies any suicidal ideation. She denies any problem with sleep or appetite. She denies any side effect of medications. ASSESSMENT 1. Major depressive disorder, single episode. 2. Anxiety disorder. PLAN 1. Continue Zoloft 50 mg p.o. daily. 2. Continue temazepam 15 mg p.o. nightly p.r.n. 3. Continue Ativan 0.5 mg p.o. b.i.d. 4. Supportive therapy. Dictated by: COLBY Joya Job#: [id number]
--- NOTE | 2018-02-03 12:47 | Progress Note ---
DATE: January 30, 2018 PSYCHIATRIC PROGRESS NOTE SUBJECTIVE: Patient evaluated and events noted. Patient is in the room. She is still tearful, having difficulty adjusting with her medical issues and recent loss of her job. She is scared of losing her house. She denies any suicidal ideation. She denies any hallucinations. She denies any issue with sleep or appetite. She is taking medications and they are helping her somewhat. She denies any side effects of medication. ASSESSMENT: Major depressive disorder, single episode and anxiety disorder. PLAN 1. Continue Ativan p.r.n. p.o. 2. Add Ativan 0.5 mg p.o. b.i.d. 3. Add Ativan p.r.n. IV. 4. Continue with Zoloft 50 mg p.o. daily. 5. Continue temazepam 15 mg p.o. q.h.s. p.r.n. 6. Continue with Klonopin p.r.n. 7. Monitor for mood. 8. Supportive therapy. Dictated by: COLBY Joya Job#: [id number] [place]
== END 2018-02-01 10:30 | disposition home or self-care (01) | DRG 191 ==
LOC: ER 16:05 → ERHOLD 17:57 → MED/SURG2 19:37
PROVIDERS: ADMIT Internal Medicine; ATTEND Internal Medicine
PROC: 0B9J8ZX Drainage of Left Lower Lung Lobe, Via Natural or Artificial Opening Endoscopic, Diagnostic (ICD-10-PCS; principal; 2018-01-26)
PROC: 0B9F8ZX Drainage of Right Lower Lung Lobe, Via Natural or Artificial Opening Endoscopic, Diagnostic (ICD-10-PCS; 2018-01-26)
DX: J44.1 Chronic obstructive pulmonary disease with (acute) exacerbation (principal); D68.51 Activated protein C resistance; J98.19 Other pulmonary collapse; J98.11 Atelectasis; R09.02 Hypoxemia; F41.9 Anxiety disorder, unspecified; F32.9 Major depressive disorder, single episode, unspecified; Z87.891 Personal history of nicotine dependence; M23.211 Derangement of anterior horn of medial meniscus due to old tear or injury, right knee; I10 Essential (primary) hypertension; Z86.718 Personal history of other venous thrombosis and embolism; Z79.01 Long term (current) use of anticoagulants; F41.0 Panic disorder [episodic paroxysmal anxiety]; K52.9 Noninfective gastroenteritis and colitis, unspecified; E78.5 Hyperlipidemia, unspecified; Z99.81 Dependence on supplemental oxygen; S43.5 Sprain of acromioclavicular joint; Z79.899 Other long term (current) drug therapy
CPT/HCPCS: 36415; 71045; 71046; 71260; 80048; 80053; 81001; 82550; 82553; 83605; 83735; 84484; 85025; 85379; 85610; 85730; 87040; 87045; 87086; 87102; 87116; 87205; 87206; 87335; 87493; 93005; 93971; 94640; 94667; 94668; 99284; J0696; J2001; J2060; J2250; J2920; J2930; J7030; J7512; Q9967

== ENCOUNTER → 2022-05-09 | Outpatient (CLI) | payer MEDICARE ==
[~2022-05-09] MED LIST changes: +AMBIEN5 MG PO; +ANORO INH; +ATORVASTATIN CA10 MG PO; +PANTOPRAZOLE SO40 MG PO; +SPIRIVA18 MCG INH; +VITAMIN D250000 UNIT PEG
== END ==
LOC: CT 11:55
PROVIDERS: ATTEND Internal Medicine
DX: R06.09 Other forms of dyspnea (principal)
CPT/HCPCS: 71250